=== PATIENT | female | born 1950 | race Caucasian/White ===

== ENCOUNTER 2023-01-28 09:13 | Outpatient (OUT) | payer MEDICARE, SELFPAY ==
[2023-01-28 10:31] LABS: Alanine Aminotransferase 22 U/L (14-59); Albumin Globulin Ratio 0.9; Albumin Level 3.3 g/dL (3.4-5.0); Alkaline Phosphatase 97 U/L (46-116); Anion Gap 11.5; Aspartate Amino Transferase 16 U/L (15-37); BUN Creatinine Ratio 19.7; Bilirubin Total 0.3 mg/dL (0.2-1.0); Calcium 8.6 mg/dL (8.5-10.1); Carbon Dioxide 28.5 mmol/L (21.0-32.0); Chloride 105 mmol/L (98-107); Chol HDL Ratio 2.4; Cholesterol 181 mg/dL (<=200); Estimated GFR (African America >60 (>=60); Estimated GFR (Non-African Ame >60 (>=60); Globulin 3.7 g/dL; Glucose 99 mg/dL (74-106); HDL Cholesterol 75 mg/dL (40-60); Sodium 141 mmol/L (136-145); Triglycerides 134 mg/dL (<=150); VLDL CHOLESTEROL 26.8 mg/dL
== END 2023-01-28 09:14 | disposition home or self-care (01) ==
LOC: LAB 09:13
PROVIDERS: PCP Family Medicine; Visit Provider Family Medicine
DX: E78.5 Hyperlipidemia, unspecified (principal)
CPT/HCPCS: 36415; 80053; 80061

== ENCOUNTER 2023-02-04 13:23 | Outpatient (OUT) | payer MEDICARE, SELFPAY ==
--- NOTE | 2023-02-04 | MM_ITS ---
Patient: PIERCE STRAUSS Exam Date: 02/04/2023 : 1950 Gender:F Ordering : DR Joann Green M.D. Admission #: [id number] Family : Order #: [id number] CLICK HERE TO VIEW EXAM RADIOLOGY REPORT PROCEDURE: MM TOMOSYNTHESIS SCREENING BI COMPARISON: MG MAMM SCREEN 3D KEVIN CAD, 02/03/2022. MG MAMM SCREEN 3D KEVIN CAD, 01/31/2021. MG MAMM SCREEN KEVIN W CAD, 01/31/2020. MG MAMM SCREEN KEVIN W CAD, 01/15/2013. INDICATIONS: Screening for malignant neoplasm Calculator Name NCI Breast Cancer Risk Assessment Tool 5 Year Breast Cancer Risk 2.30% Lifetime Breast Cancer Risk 6.00% Personal Breast Cancer No Personal Ovarian Cancer No Treatments None Family Cancers None LOCATION: [facility] BREAST COMPOSITION: Heterogeneously dense,which may obscure small masses. FINDINGS: DIAGNOSTIC CATEGORY 1--NEGATIVE. RIGHT BREAST: No significant suspicious finding. No significant change has occurred. LEFT BREAST: No significant suspicious finding. No significant change has occurred. RECOMMENDATIONS: ROUTINE MAMMOGRAM AND CLINICAL EVALUATION IN 12 MONTHS. PLEASE NOTE: A NORMAL MAMMOGRAM DOES NOT EXCLUDE THE POSSIBILITY OF BREAST CANCER. A CLINICALLY SUSPICIOUS PALPABLE LUMP SHOULD BE BIOPSIED. Dictated by: Kobe Glez M.D. on 02/09/2023 at 12:54 Approved by: Kobe Glez M.D. on 02/09/2023 at 12:56
== END 2023-02-04 13:24 | disposition home or self-care (01) ==
LOC: MAMMO 13:23
PROVIDERS: PCP Family Medicine; Visit Provider Family Medicine
DX: Z12.31 Encounter for screening mammogram for malignant neoplasm of breast (principal)
CPT/HCPCS: 77063; 77067

== ENCOUNTER 2024-02-04 09:42 | Outpatient (OUT) | payer MEDICARE, SELFPAY ==
--- OUTSIDE RECORDS SUMMARY | 2024-02-04 09:56 | XMS_ITS | CCD ---
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 Name Role Phone DR JOANN GREEN Primary Care Unavailable WEST, DR RICKIE Sweeney Consulting Unavailable JOSHUA, DR JOANN Deluca Admitting Unavailable JOSHUA, DR JOANN Deluca Attending Unavailable JOSHUA, DR JOANN Deluca Consulting Unavailable JOSHUA, DR JOANN Deluca Primary Care Unavailable GREEN, DR JOANN Deluca Admitting Unavailable GREEN, DR JOANN Deluca Attending Unavailable JOSHUA, DR JOANN Deluca Consulting Unavailable DANYA Zeng Attending Provider [phone] Fabby Zeng Unavailable Joann Green Primary Care Unavailable Fabby Zeng Attending Unavailable Fabby Zeng Admitting Unavailable Joann Green Unavailable Allergies Allergy Classification Reported Allergen(s) Allergy Type Date of Onset Reaction(s) Facility (1 source) Iodine (And Iodine Containting Drugs) Drug allergy (disorder) [facility] Repository (1 source) Penicillin Drug Allergy [facility] Repository (3 sources) Penicillin V Drug Allergy rash [employer] [facility] Other (3 sources) [employer] *MEDICAL DEVICES AND SUPP Propensity to adverse reactions Comment:CT DYE [facility] Other (3 sources) Penicillin G Benzathine & Proc Drug allergy Unknown [facility] Other Medications Completed/Discontinued Medications Medication Drug Class(es) Dates Sig (Normalized) Sig (Original) Aircast Sport Ankle Brace/Left - (3 sources) Start: 12-24-2019 Aircast Sport Ankle Brace/Left - as directed Dec, Not-Taking atorvastatin 20 mg oral tablet (6 sources) HMG-CoA Reductase Inhibitor Start: 01-16-2022 take 1 tablet by mouth once daily atorvastatin 20mg atorvastatin 20mg, 1 (one) Tablet daily # 0, 01/16/2022, No Refill. Active oral daily for 0 *Reorder from [employer] for eRx and Interaction Alerts* Jan, Not-Taking naproxen sodium 550 mg oral tablet (3 sources) Nonsteroidal Anti-inflammatory Drug Start: 12-24-2019 take 1 tablet by mouth every twelve hours Anaprox DS 550 MG 1 tablet Orally Twice a day for 10 days Dec, Not-Taking omeprazole 20 mg oral tablet (6 sources) Proton Pump Inhibitor Start: 02-27-2022 take 1 capsule by mouth once daily Omeprazole 20mg omeprazole 20mg, 1 (one) Capsule daily # 0, 02/27/2022, No Refill. Active oral daily for 0 *Pick strength-form from [employer] for eRX* Feb, Not-Taking take 1 capsule by [facility] every twenty-four hours Omeprazole 20 MG 1 capsule Orally Once a day for 90 days Active Problems Active Problems Problem Classification Problem Date Documented Da te Episodic/Chronic Abdominal pain (5 sources) Right upper quadrant pain; Translations: [Right upper quadrant pain] Onset: 05-31-2018 Episodic Disorders of lipid metabolism (7 sources) Hyperlipidemia, unspecified; Translations: [Hyperlipidemia] Onset: 11-26-2016 Chronic Esophageal disorders (6 sources) Esophageal reflux finding; Translations: [Esophageal reflux] Onset: 12-01-2018 Chronic Genitourinary symptoms and ill-defined conditions (1 source) Dysuria; Translations: [Dysuria] Onset: 11-23-2022 Episodic Other injuries and conditions due to external causes (2 sources) History of fall; Translations: [History of falling] Episodic Other nutritional; endocrine; and metabolic disorders (2 sources) Body mass index 25-29 - overweight; Translations: [Body mass index (BMI) 26.0-26.9, adult] Episodic Other nutritional; endocrine; and metabolic disorders (2 sources) Overweight; Translations: [Overweight] Episodic Other screening for suspected conditions (not mental disorders or infectious disease) (5 sources) Encounter for screening mammogram for malignant neoplasm of breast; Translations: [ENC SCR MAMMO MALIG NEOPLASM BREAST] Onset: 02-03-2022 Episodic Other upper respiratory disease (2 sources) Seasonal allergic rhinitis; Translations: [Other seasonal allergic rhinitis] Onset: 12-22-2017 Chronic Past or Other Problems Problem Classification Problem Date Documented Da te Episodic/Chronic Acute bronchitis (2 sources) Acute bronchitis; Translations: [Acute bronchitis, unspecified] Onset: 12-22-2017 Episodic Immunizations and screening for infectious disease (2 sources) Vaccination given; Translations: [Encounter for immunization] Onset: 12-02-2016 Episodic Other disorders of stomach and duodenum (2 sources) Nonulcer dyspepsia; 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] Onset: 05-31-2018 Episodic Residual codes; unclassified (2 sources) Requires influenza virus vaccination; Translations: [Need for prophylactic vaccination and inoculation, Influenza] Onset: 12-02-2016 Episodic Results Test Name Value Interpretation Reference Range Facil ity Urine Cultureon 11-23-2022 Bacteria identified Cx Nom (U) Reason for Exam Dysuria Urine <9,000 colonies/ml mixed bacterial skin contaminants 2 Days PERFORMED BY: [place] [address] PATHOLOGIST PATIENT NAVIGATOR NINOSKA CUI M.D. [facility] Comment on above: Performed By: #### C UU #### [address] MG MAMM SCREEN 3D KEVIN CADon 02-03-2022 MG MAMM SCREEN 3D KEVIN CAD Patient: PIERCE STRAUSS Exam Date: 02/03/2022 : 1950 Gender:F Ordering : DR JOANN GREEN M.D. Admission #: [id number] Family : Order #: [id number] CLICK HERE TO VIEW EXAM RADIOLOGY REPORT PROCEDURE: MAMMOGRAM SCREENING 3D BILATERAL CAD COMPARISON: MG MAMM SCREEN KEVIN W CAD, 01/31/2020. MG MAMM SCREEN 3D KEVIN CAD, 01/31/2021. INDICATIONS: Screening mammography Calculator Name NCI Breast Cancer Risk Assessment Tool 5 Year Breast Cancer Risk 2.30% Lifetime Breast Cancer Risk 6.30% Personal Breast Cancer No Personal Ovarian Cancer No Treatments None Family Cancers None LOCATION: [facility] BREAST COMPOSITION: Heterogeneously dense,which may obscure small masses. FINDINGS: DIAGNOSTIC CATEGORY 1--NEGATIVE. NO CHANGE FROM COMPARISON ASSESSMENT. Scattered benign-appearing calcifications are present. Scattered benign-appearing lymph nodes are present. RIGHT BREAST: No significant suspicious finding. LEFT BREAST: No significant suspicious finding. RECOMMENDATIONS: ROUTINE MAMMOGRAM AND CLINICAL EVALUATION IN 12 MONTHS. PLEASE NOTE: A NORMAL MAMMOGRAM DOES NOT EXCLUDE THE POSSIBILITY OF BREAST CANCER. A CLINICALLY SUSPICIOUS PALPABLE LUMP SHOULD BE BIOPSIED. Dictated by: Rickie Escobar MD on 02/03/2022 at 14:26 Approved by: Rickie Escobar MD on 02/03/2022 at 14:28 Normal [facility] CBC AUTO DIFFon 01-14-2022 BASO # 0.0 103/ul Normal 0.0-0.1 [facility] Comment on above: Performed By: #### C BC #### [facility] [address] [place] [address] Dr. Giovanni Stewart Basophils/100 WBC (Bld) 0.8 % Normal 0.2-2.0 [facility] Comment on above: Performed By: #### C BC #### [facility] [address] [place] [address] Dr. Giovanni Stewart EO # 0.1 103/ul Normal 0.0-0.7 [facility] Comment on above: Performed By: #### C BC #### [facility] [address] [place] [address] Dr. Giovanni Stewart Eosinophils/100 WBC (Bld) 1.9 % Normal 0.9-7.0 [facility] Comment on above: Performed By: #### C BC #### [facility] [address] [place] [address] Dr. Giovanni Stewart Erythrocyte distribution width (RBC) [Ratio] 14.0 % Normal 11.0-15.0 [facility] Comment on above: Performed By: #### C BC #### [facility] [address] [place] [address] Dr. Giovanni Stewart Hematocrit (Bld) [Volume fraction] 38.7 % Normal 36.0-48.0 [facility] Comment on above: Performed By: #### C BC #### [facility] [address] [place] [address] Dr. Giovanni Stewart Hemoglobin (Bld) [Mass/Vol] 12.4 g/dL Normal 12.0-16.0 [facility] Comment on above: Performed By: #### C BC #### [facility] [address] [place] [address] Dr. Giovanni Stewart IG # 0.01 10e3/ul Normal 0.00-0.03 [facility] Comment on above: Performed By: #### C BC #### [facility] [address] [place] [address] Dr. Giovanni Stewart IG % 0.2 % Normal 0.0-0.5 [facility] Comment on above: Performed By: #### C BC #### [facility] [address] [place] [address] Dr. Giovanni Stewart LYMPH # 2.0 103/ul Normal 1.2-3.8 [facility] Comment on above: Performed By: #### C BC #### [facility] [address] [place] [address] Dr. Giovanni Stewart Lymphocytes/100 WBC (Bld) 39.4 % Normal 20.5-60.0 [facility] Comment on above: Performed By: #### C BC #### [facility] [address] [place] [address] Dr. Giovanni Stewart MANUAL DIFF REQ NO Normal [facility] Comment on above: Performed By: #### C BC #### [facility] [address] [place] [address] Dr. Giovanni Stewart MCH (RBC) [Entitic mass] 28.3 pg Normal 26.7-34.0 [facility] Comment on above: Performed By: #### C BC #### [facility] [address] [place] [address] Dr. Giovanni Stewart MCHC (RBC) [Mass/Vol] 32.0 g/dL Normal 29.9-35.2 [facility] Comment on above: Performed By: #### C BC #### [facility] [address] [place] [address] Dr. Giovanni Stewart MCV (RBC) [Entitic vol] 88.4 fL Normal 81.0-99.0 [facility] Comment on above: Performed By: #### C BC #### [facility] [address] [place] [address] Dr. Giovanni Stewart MONO # 0.4 103/ul Normal 0.3-0.8 [facility] Comment on above: Performed By: #### C BC #### [facility] [address] [place] [address] Dr. Giovanni Stewart Monocytes/100 WBC (Bld) 7.6 % Normal 1.7-12.0 [facility] Comment on above: Performed By: #### C BC #### [facility] [address] [place] [address] Dr. Giovanni Stewart NEUT # 2.6 103/ul Normal 1.4-6.5 [facility] Comment on above: Performed By: #### C BC #### [facility] [address] [place] [address] Dr. Giovanni Stewart Neutrophils/100 WBC (Bld) 50.1 % Normal 43.0-75.0 [facility] Comment on above: Performed By: #### C BC #### [facility] [address] [place] [address] Dr. Giovanni Stewart Platelet mean volume (Bld) [Entitic vol] 10.4 fL Normal 9.5-13.5 [facility] Comment on above: Performed By: #### C BC #### [facility] [address] [place] [address] Dr. Giovanni Stewart PLT 282 103/ul Normal 150-450 [facility] Comment on above: Performed By: #### C BC #### [facility] [address] [place] [address] Dr. Giovanni Stewart RBC 4.38 106/ul Normal 4.20-5.40 [facility] Comment on above: Performed By: #### C BC #### [facility] [address] [place] [address] Dr. Giovanni Stewart WBC 5.1 103/ul Normal 4.0-11.0 [facility] Comment on above: Performed By: #### C BC #### [facility] [address] [place] [address] Dr. Giovanni Stewart LIPID PROFILEon 01-14-2022 CHOL-HDL RATIO NORM SEE BELOW Normal [facility] Comment on above: Result Comment: 3.3 - 4.4 LOW RISK 4.4 - 7.1 AVERAGE RISK 7.1 - 11.0 MODERATE RISK >11.0 HIGH RISK Performed By: #### L IPID, CMP #### [facility] [address] [address] [address] Giovanni Stewart Cholesterol [Mass/Vol] 168 mg/dL Normal <=200 [facility] Comment on above: Performed By: #### L IPID, CMP #### [facility] [address] [address] [address] Giovanni Stewart Cholesterol in HDL [Mass/Vol] 69 mg/dL Critically high 40-60 [facility] Comment on above: Performed By: #### L IPID, CMP #### [facility] [address] [address] [address] Giovanni Stewart Cholesterol in LDL [Mass/Vol] 73.2 mg/dL Normal [facility] Comment on above: Performed By: #### L IPID, CMP #### [facility] [address] [address] [address] Giovanni Stewart Cholesterol.total/ Cholesterol in HDL [Mass ratio] 2.4 {ratio} Normal [facility] Comment on above: Performed By: #### L IPID, CMP #### [facility] [address] [address] [address] Giovanni Stewart HDL NORMAL > or = 60 mg/dl - LO W CARDIOVASCULAR RISK <40 mg/dl - HIGH CARDIOVASCULAR RISK Normal [facility] Comment on above: Performed By: #### L IPID, CMP #### [facility] [address] [address] [address] Giovanni Stewart LDL CALC NORMAL SEE BELOW Normal [facility] Comment on above: Result Comment: <100 mg/dl OPTIMAL 100 - 129 mg/dl NEAR OR ABOVE OPTIMAL 130 - 159 mg/dl BORDERLINE HIGH 160 - 189 mg/dl HIGH >190 mg/dl VERY HIGH Performed By: #### L IPID, CMP #### [facility] [address] [address] [address] Giovanni Stewart Triglyceride [Mass/Vol] 129 mg/dL Normal <=150 [facility] Comment on above: Performed By: #### L IPID, CMP #### [facility] [address] [place] [address] Dr. Giovanni Stewart VLDL CALC 25.8 mg/dL Normal [facility] Comment on above: Performed By: #### L IPID, CMP #### [facility] [address] [place] [address] Dr. Giovanni Stewart PROF 14(COMP METB)on 022 Albumin [Mass/Vol] 3.6 g/dL Normal 3.4-5.0 [facility] Comment on above: Performed By: #### L IPID, CMP #### [facility] [address] [place] [address] Dr. Giovanni Stewart Albumin/Globulin [Mass ratio] 1.0 {ratio} Normal [facility] Comment on above: Performed By: #### L IPID, CMP #### [facility] [address] [place] [address] Dr. Giovanni Stewart ALP [Catalytic activity/Vol] 88 U/L Normal 46-116 [facility] Comment on above: Performed By: #### L IPID, CMP #### [facility] [address] [place] [address] Dr. Giovanni Stewart ALT [Catalytic activity/Vol] 20 U/L Normal 14-59 [facility] Comment on above: Performed By: #### L IPID, CMP #### [facility] [address] [place] [address] Dr. Giovanni Stewart Anion gap [Moles/Vol] 12.9 mmol/L Normal [facility] Comment on above: Performed By: #### L IPID, CMP #### [facility] [address] [place] [address] Dr. Giovanni Stewart AST [Catalytic activity/Vol] 20 U/L Normal 15-37 [facility] Comment on above: Performed By: #### L IPID, CMP #### [facility] [address] [place] [address] Dr. Giovanni Stewart Bilirubin [Mass/Vol] 0.4 mg/dL Normal 0.2-1.0 [facility] Comment on above: Performed By: #### L IPID, CMP #### [facility] [address] [place] [address] Dr. Giovanni Stewart Calcium [Mass/Vol] 9.3 mg/dL Normal 8.5-10.1 [facility] Comment on above: Performed By: #### L IPID, CMP #### [facility] [address] [place] [address] Dr. Giovanni Stewart Chloride [Moles/Vol] 104 mmol/L Normal 98-107 [facility] Comment on above: Performed By: #### L IPID, CMP #### [facility] [address] [place] [address] Dr. Giovanni Stewart CO2 [Moles/Vol] 27.4 mmol/L Normal 21.0-32.0 [facility] Comment on above: Performed By: #### L IPID, CMP #### [facility] [address] [place] [address] Dr. Giovanni Stewart Creatinine [Mass/Vol] 0.79 mg/dL Normal 0.55-1.02 [facility] Comment on above: Performed By: #### L IPID, CMP #### [facility] [address] [place] [address] Dr. Giovanni Stewart EGFR-AF NIGERIEN >60 Normal >=60 [facility] Comment on above: Performed By: #### L IPID, CMP #### [facility] [address] [place] [address] Dr. Giovanni Stewart EGFR-NON AF NIGERIEN >60 Normal >=60 [facility] Comment on above: Performed By: #### L IPID, CMP #### [facility] [address] [place] [address] Dr. Giovanni Stewart Globulin (S) [Mass/Vol] 3.5 g/dL Normal [facility] Comment on above: Performed By: #### L IPID, CMP #### [facility] [address] [place], [place] [id number] Dr. Giovanni Stewart Glucose [Mass/Vol] 107 mg/dL Critically high 74-106 [facility] Comment on above: Performed By: #### L IPID, CMP #### [facility] [address] [place] [address] Dr. Giovanni Stewart Potassium [Moles/Vol] 4.3 mmol/L Normal 3.5-5.1 [facility] Comment on above: Performed By: #### L IPID, CMP #### [facility] [address] [place] [address] Dr. Giovanni Stewart Protein [Mass/Vol] 7.1 g/dL Normal 6.4-8.2 [facility] Comment on above: Performed By: #### L IPID, CMP #### [facility] [address] [place] [address] Dr. Giovanni Stewart Sodium [Moles/Vol] 140 mmol/L Normal 136-145 [facility] Comment on above: Performed By: #### L IPID, CMP #### [facility] [address] [place] [address] Dr. Giovanni Stewart Urea nitrogen [Mass/Vol] 14.0 mg/dL Normal 7.0-18.0 [facility] Comment on above: Performed By: #### L IPID, CMP #### [facility] [address] [place] [address] Dr. Giovanni Stewart Urea nitrogen/Creatinin e [Mass ratio] 17.7 mg/mg Normal [facility] Comment on above: Performed By: #### L IPID, CMP #### [facility] [address] [place] [address] Dr. Giovanni Stewart Vital Signs Date Time Vital Sign Value Performing Clinician Facility 02-02-2023 13:00-0400 Body height 151.13 cm Joann Green Other [facility] Other 02-02-2023 13:00-0400 Body mass index (BMI) [Ratio] 25.62 kg/m2 Joann Green Other [facility] Other 02-02-2023 13:00-0400 Body weight 58.51 kg Joann Green Other [facility] Other 02-02-2023 13:00-0400 Diastolic blood pressure 82 mm[Hg] Joann Green Other [facility] Other 02-02-2023 13:00-0400 Systolic blood pressure 142 mm[Hg] Joann Green Other [facility] Other Encounters Encounter Date Encounter Type Care Provider Facility Start: 02-02-2023 End: 02-02-2023 ambulatory Joann Green Other [facility] Other Start: 02-02-2023 Patient encounter procedure Joann Green [facility] Start: 01-26-2023 End: 01-26-2023 ambulatory Joann Green Other [facility] Other Start: 01-26-2023 Telephone encounter Joann Green [facility] Start: 11-27-2022 End: 11-27-2022 ambulatory Fabby Zeng Other [facility] Other Start: 11-27-2022 Telephone encounter Fabby Zeng [facility] Start: 11-23-2022 End: 11-23-2022 ambulatory Joann Green Facility:[facility] Start: 11-23-2022 End: 11-23-2022 ambulatory DNAYA Zeng Work Phone: [facility] Work Phone: Start: 11-23-2022 End: 11-23-2022 Departed Referred DANYA Zeng Work Phone: [facility] Work Phone: Start: 02-03-2022 End: 02-04-[address] JOANN GREEN Facility:[facility] Start: 01-17-2022 Encounter for genera l adult medical examination without abnormal findings DR JOANN GREEN [facility] Start: 01-16-2022 Adult health examination Fabby Zeng Other [facility] Other Start: 01-14-2022 End: 01-15-[address] JOANN GREEN Facility:[facility] Start: 01-14-2022 End: 01-15-2022 Encounter for general adult medical examination without abnormal findings DR JOANN GREEN Facility:[facility] Procedures Date Procedure Procedure Detail Performing Clinician Start: 12-01-2017 Screening for malign ant neoplasm of colon Fabby Zeng Other Start: 12-02-2016 Screening mammography Tushar Zeng Other Start: 11-26-2016 General examination of patient Fabby Zeng Other Depression screening Fabby Zeng Other Plan of Treatment Date Care Activity Detail Author Start: 11-23-2022 Bacteria identified in Urine by Culture [facility] Immunizations Immunization Date Immunization Notes Care Provider Delmy wise 02-03-2022 COVID-19 Pfizer (Pediatric) Fabby Zeng Other [facility] Other 01-11-2022 influenza virus vaccine, split virus (incl. purified surface antigen) Fabby Zeng Other [facility] Other 10-29-2021 COVID-19 Vaccine Pfi zer - Documentation Purposes Only Fabby Zeng Other [facility] Other 01-31-2021 COVID-19 Vaccine Pfi zer - Documentation Purposes Only Fabby Zeng Other [facility] Other 01-10-2021 influenza virus vaccine, split virus (incl. purified surface antigen) Fabby Zneg Other [facility] Other 12-16-2019 influenza virus vaccine, split virus (incl. purified surface antigen) Fabby Azucena Other [facility] Other 04-29-2019 zoster vaccine, live Fabby Azucena Other [facility] Other 12-02-2016 influenza virus vaccine, split virus (incl. purified surface antigen) Fabby Azucena Other [facility] Other 12-02-2016 pneumococcal polysaccharide vaccine, 23 valent Fabbymagalys Zeng Other [facility] Other 12-28-2015 pneumococcal conjuga te vaccine, 13 valent Fabbymagalys Zeng Other [facility] Other Payers Date Payer Category Payer Self-pay [id number] 1959 Medicare [id number] 1959 Unknown [id number] 1950 Unknown [id number] 1950 Unknown [id number] Unknown [id number] Social History Date Type Detail Facility Tobacco smoking status NMIS Unknown if ever smoked [facility] Work Phone: Start: 1950 Sex Assigned At Female F [facility] Sex Assigned At Sex Assigned At Bir th [facility] Other Evaluation note 02-02-2023 Note Date & Type Note Facility 02-02-2023 Evaluation note Encounter Date Diagnosis Assessment Notes Jan, Medicare annual wellness visit, subsequent (ICD-10 - Z00.00) Personalized health advice was given to the beneficiary including a written plan for screenings discussed and provided. Advanced care planning reviewed and/or information given as requested. Additional counseling was provided here today in regards to, [ ]. The above visit was performed by [ ], under direct supervision of [ ]. Document reviewed and amended by provider signed below. Jan, GERD without esophagitis (ICD-10 - K21.9) Omeprazole refilled. Chronic problem. Jan, Dyslipidemia (ICD-10 - E78.5) Med refilled. chronic problem. reviewed labs. Jan, Screening mammogram for breast cancer (ICD-10 - Z12.31) [facility] Other Evaluation note 01-26-2023 Note Date & Type Note Facility 01-26-2023 Evaluation note Encounter Date Diagnosis Assessment Notes Jan, Dyslipidemia (ICD-10 - E78.5) [facility] Other Evaluation note Note Date & Type Note Facility [facility] Evaluation note Note Date & Type Note Facility Evaluation note No Information [facility] Other History general Narrative - Reported Note Date & Type Note Facility History general Narrative - Reported Type Medical History GERD (gastroesophageal reflux di sease) Medical History Hypercholesteremia Surgical History salpingo-oophorectomy, left [facility] Other History general Narrative - Reported Note Date & Type Note Facility History general Narrative - Reported Type Medical History GERD (gastroesophageal reflux di sease) Medical History Hypercholesteremia Surgical History salpingo-oophorectomy, left Hospitalization History SEE SURGICAL HX [place] Other Summary Purpose Family History No Family History Records FoundNo Family History Records Found Advance Directives Advance Directive Response Recorded Date/ Time Advance Directives No December 7:34pm Chief Complaint and Reason for Visit Chief Complaint Dysuria Additional Source Comments INFORMATION SOURCE (unrecogn ized section and content) DATE CREATED AUTHOR 02/09/2022 [facility] DATE CREATED AUTHOR AUTHOR'S ORGANCONCHITA ATION 11/29/2022 [facility] Care Teams (unrecognized sec tion and content) Team Status: Inactive Member Role Status Dates Fabby Zeng APRN Attending Provider Active Goals (unrecognized section and content) Goals may be documented in a n alternate sectionNo InformationNo InformationNo Information REASON FOR VISIT (unrecogniz ed section and content) wellness labs FOR RECORDS PERTAINING TO PATIENTS WHO ARE OR HAVE BEEN ENROLLED IN A CHEMICAL DEPENDENCY/SUBSTANCEABUSE PROGRAM, SOME INFORMATION MAY BE OMITTED. This clinical summary was aggregated from multiple sources. Caution should be exercised in using it in the provision of clinical care. This summary normalizes information from multiple sources, and as a consequence, information in this document may materially change the coding, format and clinical context of patient data. In addition, data may be omitted in some cases. CLINICAL DECISIONS SHOULD BE BASED ON THE PRIMARY CLINICAL RECORDS. [employer] [facility]. provides no warranty or guarantee of the accuracy or completeness of information in this document.
[2024-02-04 10:25] LABS: Basophils Absolute Auto 0.1 10^3/uL (0.0-0.1); Basophils Percent Auto 0.9 % (0.2-2.0); Eosinophils Absolute Auto 0.1 10^3/uL (0.0-0.7); Hematocrit 36.8 % (36.0-48.0); Hemoglobin 12.1 g/dL (12.0-16.0); Immature Granulocytes Abs Auto 0.01 10^3/uL (0.00-0.03); Immature Granulocytes Pct Auto 0.2 % (0.0-0.5); Lymphocytes Absolute Auto 1.9 10^3/uL (1.2-3.8); Lymphocytes Percent Auto 34.8 % (20.5-60.0); Mean Corpuscular HGB Conc 32.9 g/dL (29.9-35.2); Mean Corpuscular Hemoglobin 28.6 pg (26.7-34.0); Mean Platelet Volume 10.4 fL (9.5-13.5); Monocytes Absolute Auto 0.5 10^3/uL (0.3-0.8); Monocytes Percent Auto 8.6 % (1.7-12.0); Neutrophils Percent Auto 53.5 % (43.0-75.0); Platelet Count 306 10^3/uL (150-450); Red Blood Count 4.23 10^6/uL (4.20-5.40); White Blood Count 5.6 10^3/uL (4.0-11.0)
[2024-02-04 11:07] LABS: Alanine Aminotransferase 17 U/L (14-59); Albumin Globulin Ratio 0.9; Albumin Level 3.2 g/dL (3.4-5.0); Alkaline Phosphatase 98 U/L (46-116); Anion Gap 14.6; Aspartate Amino Transferase 18 U/L (15-37); Bilirubin Total 0.5 mg/dL (0.2-1.0); Calcium 9.3 mg/dL (8.5-10.1); Carbon Dioxide 26.5 mmol/L (21.0-32.0); Chloride 105 mmol/L (98-107); Chol HDL Ratio 2.4; Cholesterol 153 mg/dL (<=200); Estimated GFR (African America >60 (>=60 mL/min/1.73m^2); Estimated GFR (Non-African Ame >60 (>=60 mL/min/1.73m^2); Globulin 3.7 g/dL; Glucose 103 mg/dL (74-106); HDL Cholesterol 65 mg/dL (40-60); Potassium 4.1 mmol/L (3.5-5.1); Sodium 142 mmol/L (136-145); Total Protein 6.9 g/dL (6.4-8.2); Triglycerides 153 mg/dL (<=150); VLDL CHOLESTEROL 30.6 mg/dL
== END 2024-02-04 09:43 | disposition home or self-care (01) ==
LOC: LAB 09:47
PROVIDERS: PCP Family Medicine; Visit Provider Family Medicine
DX: E78.00 Pure hypercholesterolemia, unspecified (principal); K21.9 Gastro-esophageal reflux disease without esophagitis
CPT/HCPCS: 36415; 80053; 80061; 85025

== ENCOUNTER 2024-02-08 12:50 | Outpatient (OUT) | payer MEDICARE, SELFPAY ==
--- NOTE | 2024-02-08 12:51 | MM_ITS ---
Patient Name: PIERCE STRAUSS MR#: [id number] : 1950 Exam Date: 02/08/2024 Ordering Doctor: DR Joann Green M.D. RADIOLOGY REPORT PROCEDURE: MM TOMOSYNTHESIS SCREENING BI COMPARISON: MG MAMM SCREEN 3D KEVIN CAD, 02/03/2022. MM TOMOSYNTHESIS SCREENING BI, 02/04/2023. INDICATIONS: Screening Calculator Name NCI Breast Cancer Risk Assessment Tool 5 Year Breast Cancer Risk 2.30% Lifetime Breast Cancer Risk 5.70% Personal Breast Cancer No Personal Ovarian Cancer No Treatments None Family Cancers None LOCATION: [facility] BREAST COMPOSITION: The breasts are heterogeneously dense,which may obscure small masses. FINDINGS: DIAGNOSTIC CATEGORY 1--NEGATIVE. NO CHANGE FROM COMPARISON ASSESSMENT. Scattered benign-appearing lymph nodes are present. RIGHT BREAST: No significant suspicious finding. LEFT BREAST: No significant suspicious finding. RECOMMENDATIONS: ROUTINE MAMMOGRAM AND CLINICAL EVALUATION IN 12 MONTHS. PLEASE NOTE: A NORMAL MAMMOGRAM DOES NOT EXCLUDE THE POSSIBILITY OF BREAST CANCER. A CLINICALLY SUSPICIOUS PALPABLE LUMP SHOULD BE BIOPSIED. Dictated by: George Escobar MD on 02/08/2024 at 14:01 Approved by: George Escobar MD on 02/08/2024 at 14:02
--- OUTSIDE RECORDS SUMMARY | 2024-02-08 12:58 | XMS_ITS | CCD ---
Author Organization [facility] Care Team Providers Care Weaving Inspector Name Role Phone DR JOANN GREEN Primary Care Unavailable WEST, DR RICKIE Sweeney Consulting Unavailable JOSHUA, DR JOANN Deluca Admitting Unavailable JOSHUA, DR JOANN Deluca Attending Unavailable JOSHUA, DR JOANN Deluca Consulting Unavailable JOSHUA, DR JOANN Deluca Primary Care Unavailable JOSHUA, DR JOANN Deluca Admitting Unavailable JOSHUA, DR JOANN Deluca Attending Unavailable JOSHUA, DR JOANN Deluca Consulting Unavailable DANYA Zeng Attending Provider Fabby Zeng Unavailable Joann Green Primary Care Unavailable Fabby Zeng Attending Unavailable Fabby Zeng Admitting Unavailable Joann Green Unavailable Allergies Allergy Classification Reported Allergen(s) Allergy Type Date of Onset Reaction(s) Facility (1 source) Iodine (And Iodine Containting Drugs) Drug allergy (disorder) [facility] (1 source) Penicillin Drug Allergy [facility] (4 sources) Penicillin V Drug Allergy 4 [facility] (3 sources) [employer] *MEDICAL DEVICES AND SUPP Propensity to adverse reactions Comment:CT [facility] [place] [employer] Other (3 sources) Penicillin G Benzathine & Proc Drug allergy Unknown [facility] Other (1 source) Penicillin G Benzathine Allergy to substance 4 [facility] (1 source) [employer] *MEDI Allergy to substance 3 Comment:[facility] Medications Current Medications Medication Drug Class(es) Dates Sig (Normalized) Sig (Original) atorvastatin 10 mg oral tablet (9 sources) HMG-CoA Reductase Inhibitor Start: 02-05-2024 take 10 mg by mouth once daily Atorvastatin Active 10 MG PO Daily February 05, 2024 11:31am Start: 07-01-2023 End: 02-05-2024 take 1 tablet by mouth once daily Atorvastatin Discontinued 20 MG PO Daily July 02, 2023 9:15am February 05, 2024 11:32am [employer] tablet Orally Once a day; Note: Source Status: Refill; Refills: 0; Provider: Joshua Deluca Start: 01-16-2022 take 1 tablet by tanya th once daily atorvastatin 20mg atorvastatin 20mg, 1 (one) Tablet daily # 0, 01/16/2022, No Refill. Active oral daily for 0 *Reorder from [employer] for eRx and Interaction Alerts* Jan, Not-Taking Completed/Discontinued Medications Medication Drug Class(es) Dates Sig (Normalized) Sig (Original) [employer] Sport Ankle Brace/Left - (3 sources) Start: 12-24-2019 [employer] Sport Ankle Brace/Left - as directed Dec, Not-Taking naproxen sodium 550 mg oral tablet (4 sources) Nonsteroidal Anti-inflammatory Drug Start: 07-01-2023 End: 02-05-2024 take 1 tablet by mouth twice daily Naproxen Sodium Discontinued 1 TAB PO Twice daily July 01, 2023 12:00am February 05, 2024 11:30am [employer] tablet Orally Twice a day; Note: Source Status: Not-Taking\PRN; Qty: 20 Tablet; Provider: Jono Hernandez Start: 12-24-2019 take 1 tablet by tanya th every twelve hours Anaprox DS 550 MG 1 tablet Orally Twice a day for 10 days Dec, Not-Taking omeprazole 20 mg delayed release oral capsule (8 sources) Proton Pump Inhibitor Start: 07-01-2023 End: 02-05-2024 take 1 capsule by mouth once daily Omeprazole Discontinued 20 MG PO Daily July 02, 2023 9:15am February 05, 2024 11:14am [employer] capsule Orally Once a day; Note: Source Status: Refill; Refills: 0; Provider: Joshua Deluca Start: 02-27-2022 take 1 capsule by mo [facility] once daily Omeprazole 20mg omeprazole 20mg, 1 (one) Capsule daily # 0, 02/27/2022, No Refill. Active oral daily for 0 *Pick strength-form from [employer] for eRX* 17 Feb, 2022 Not-Taking take 1 capsule by mo [facility] every twenty-four hours Omeprazole 20 MG 1 capsule Orally Once a day for 90 days Active Problems Active Problems Problem Classification Problem Date Documented Da te Episodic/Chronic Abdominal pain (5 sources) Right upper quadrant pain; Translations: [Right upper quadrant pain] Onset: 05-31-2018 Episodic Disorders of lipid metabolism (8 sources) Hyperlipidemia, unspecified; Translations: [Hyperlipidemia] Onset: 11-26-2016 Chronic Esophageal disorders (7 sources) Esophageal reflux finding; Translations: [Esophageal reflux] [...] Results Test Name Value Interpretation Reference Range Facility Basophils Auto (Bld) [#/Vol] on 02-04-2024 Basophils (Bld) [#/Vol] 0.1 10 3/uL 0.0-0.1 [facility] Basophils/100 WBC Auto (Bld) on 02-04-2024 Basophils/100 WBC (Bld) 0.9 % 0.2-2.0 [facility] Cholesterol in LDL Calc [Mas s/Vol]on 02-04-2024 Cholesterol in LDL [Mass/Vol] 58.0 mg/dL [facility] Comment on above: <100 mg/dl [id number] 0-129 mg/dl NEAR OR ABOVE [id number] mg/dl BORDERLINE [id number] mg/dl HIGH>190 mg/dl VERY HIGH Cholesterol in VLDL Calc [Ma ss/Vol]on 02-04-2024 Cholesterol in VLDL [Mass/Vol] 30.6 mg/dL [facility] Eosinophils/100 WBC Auto (Bl d)on 02-04-2024 Eosinophils/100 WBC (Bld) 2.0 % 0.9-7.0 [facility] Erythrocyte distribution wid th Auto (RBC) [Ratio]on 02-04-2024 Erythrocyte distribution width (RBC) [Ratio] 14.0 % 11.0-15.0 [facility] Estimated glomerular filtrat ion rate (GFR) non- Americanon 02-04-2024 GFR/1.73 sq M.predicted among non-blacks MDRD (S/P/Bld) [Vol rate/Area] mL/min/{1.73_m2} >=60 mL/min/1.73m 2 [facility] Globulin Calc (S) [Mass/Vol] on 02-04-2024 Globulin (S) [Mass/Vol] 3.7 g/dL [facility] Hematocrit Auto (Bld) [Volum e fraction]on 02-04-2024 Hematocrit (Bld) [Volume fraction] 36.8 % 36.0-48.0 [facility] Hemoglobin [Mass/volume] in Bloodon 02-04-2024 Hemoglobin (Bld) [Mass/Vol] 12.1 g/dL 12.0-16.0 [facility] Laboratory - Chemistry and C hemistry - challengeon 02-04-2024 Albumin [Mass/Vol] 3.2 g/dL Low 3.4-5.0 [facility] ALP [Catalytic activity/Vol] 98 U/L 46-116 [facility] ALT [Catalytic activity/Vol] 17 U/L 14-59 [facility] AST [Catalytic activity/Vol] 18 U/L 15-37 [facility] Bilirubin [Mass/Vol] 0.5 mg/dL 0.2-1.0 [facility] Calcium [Mass/Vol] 9.3 mg/dL 8.5-10.1 [facility] Chloride [Moles/Vol] 105 mmol/L 98-107 [facility] Cholesterol [Mass/Vol] 153 mg/dL <=200 [facility] Cholesterol in HDL [Mass/Vol] 65 mg/dL High 40-60 [facility] Comment on above: > or =60 mg/dl - LOW CARDIOVASCULAR RISK<40 mg/dl - HIGH CARDIOVASCULAR RISK CO2 [Moles/Vol] 26.5 mmol/L 21.0-32.0 [facility] Creatinine [Mass/Vol] 0.91 mg/dL 0.55-1.02 [facility] GFR/1.73 sq M.predicted MDRD (S/P/Bld) [Vol rate/Area] mL/min/{1.73_m2} >=60 mL/min/1.73m 2 [facility] Glucose [Mass/Vol] 103 mg/dL 74-106 [facility] Potassium [Moles/Vol] 4.1 mmol/L 3.5-5.1 [facility] Protein [Mass/Vol] 6.9 g/dL 6.4-8.2 [facility] Sodium [Moles/Vol] 142 mmol/L 136-145 [facility] Triglyceride [Mass/Vol] 153 mg/dL High <=150 [facility] Urea nitrogen [Mass/Vol] 10.0 mg/dL 7.0-18.0 [facility] Urea nitrogen/Creatinine [Mass ratio] 11.0 mg/mg [facility] Laboratory - Hematology and Cell countson 02-04-2024 Immature granulocytes/100 WBC (Bld) 0.2 % 0.0-0.5 [facility] Leukocytes [#/volume] correc talya for nucleated erythrocytes in Blood by Automated counon 02-04-2024 WBC corrected for nucl RBC Auto (Bld) [#/Vol] 5.6 10 3/uL 4.0-11.0 [facility] Lymphocytes Auto (Bld) [#/Vo l]on 02-04-2024 Lymphocytes (Bld) [#/Vol] 1.9 10 3/uL 1.2-3.8 [facility] Lymphocytes/100 WBC Auto (Bl d)on 02-04-2024 Lymphocytes/100 WBC (Bld) 34.8 % 20.5-60.0 [facility] MCH Auto (RBC) [Entitic mass ]on 02-04-2024 MCH (RBC) [Entitic mass] 28.6 pg 26.7-34.0 [facility] MCHC Auto (RBC) [Mass/Vol]on 02-04-2024 MCHC (RBC) [Mass/Vol] 32.9 g/dL 29.9-35.2 [facility] MCV Auto (RBC) [Entitic vol] on 02-04-2024 MCV (RBC) [Entitic vol] 87.0 fL 81.0-99.0 [facility] Monocytes Auto (Bld) [#/Vol] on 02-04-2024 Monocytes (Bld) [#/Vol] 0.5 10 3/uL 0.3-0.8 [facility] Monocytes/100 WBC Auto (Bld) on 02-04-2024 Monocytes/100 WBC (Bld) 8.6 % 1.7-12.0 [facility] Neutrophils Auto (Bld) [#/Vo l]on 02-04-2024 Neutrophils (Bld) [#/Vol] 3.0 10 3/uL 1.4-6.5 [facility] Neutrophils/100 WBC Auto (Bl d)on 02-04-2024 Neutrophils/100 WBC (Bld) 53.5 % 43.0-75.0 [facility] No Panel Informationon 02-03 Eosinophils # (Auto) 0.1 10 3/uL 0.0-0.7 [facility] Immature Granulocyte # (Auto) 0.01 10 3/uL 0.00-0.03 [facility] Platelet mean volume Auto (B ld) [Entitic vol]on 02-04-2024 Platelet mean volume (Bld) [Entitic vol] 10.4 fL 9.5-13.5 [facility] Platelets Auto (Bld) [#/Vol] on 02-04-2024 Platelets (Bld) [#/Vol] 306 10 3/uL 150-450 [facility] RBC Auto (Bld) [#/Vol]on RBC (Bld) [#/Vol] 4.23 10 6/uL 4.20-5.40 [facility] Serum or plasma albumin/glob ulin mass ratioon 02-04-2024 Albumin/Globulin [Mass ratio] 0.9 {ratio} [facility] Serum or plasma anion gap de terminationon 02-04-2024 Anion gap [Moles/Vol] 14.6 mmol[facility] Serum or plasma total choles terol/high density lipoprotein (HDL) cholesterol mass gracia 02-04-2024 Cholesterol.total/Cho lesterol in HDL [Mass ratio] 2.4 {ratio} [facility] Comment on above: 3.3 - 4.4 LOW RISK4. 4 - 7.1 AVERAGE RISK7.1 - 11.0 MODERATE RISK>11.0 HIGH RISK Urine Cultureon 11-23-2022 Bacteria identified Cx Nom (U) Reason for Exam Dysuria Urine <9,000 colonies/ml mixed bacterial skin contaminants 2 Days PERFORMED BY: [place] [address] PATHOLOGIST [employer] LIBRARIAN NINOSKA CUI M.D. [facility] Comment on above: Performed By: #### C UU #### [address] MG MAMM SCREEN 3D KEVIN CADon 02-03-2022 MG MAMM SCREEN 3D KEVIN CAD Patient: PIERCE CAREY Exam Date: 02/03/2022 : 1950 Gender:F Ordering : DR JOANN GREEN M.D. Admission #: [id number] Family : Order #: [id number] CLICK HERE TO VIEW EXAM RADIOLOGY REPORT [...] Treatments None Family Cancers None LOCATION: [facility] BREAST COMPOSITION: Heterogeneously dense,which may obscure [...] Escobar MD on 02/03/2022 at 14:28 Normal [facility] CBC AUTO DIFFon 01-14-2022 BASO # 0.0 103/ul Normal 0.0-0.1 [facility] Comment on above: Performed By: #### C BC #### [facility] [address] [place] [address] Dr. Giovanni Stewart Basophils/100 WBC (Bld) 0.8 % Normal 0.2-2.0 [facility] Comment on above: Performed By: #### C BC #### [facility] [address] [place] [address] Dr. Giovanni Stewart EO # 0.1 103/ul Normal 0.0-0.7 [facility] Comment on above: Performed By: #### C BC #### [facility] [address] [address] [address] Giovanni Stewart Eosinophils/100 WBC (Bld) 1.9 % Normal 0.9-7.0 [facility] Comment on above: Performed By: #### C BC #### [facility] [address] [place] [address] Dr. Giovanni Stewart Erythrocyte distribution width (RBC) [Ratio] 14.0 % Normal 11.0-15.0 [facility] Comment on above: Performed By: #### C BC #### [facility] [address] [place] [address] Dr. Giovanni Stewart Hematocrit (Bld) [Volume fraction] 38.7 % Normal 36.0-48.0 [facility] Comment on above: Performed By: #### C BC #### [facility] [address] [place] [address] Dr. Giovanni Stewart Hemoglobin (Bld) [Mass/Vol] 12.4 g/dL Normal 12.0-16.0 [facility] Comment on above: Performed By: #### C BC #### [facility] [address] [place] [address] Dr. Giovanni Stewart IG # 0.01 10e3/ul Normal 0.00-0.03 [facility] Comment on above: Performed By: #### C BC #### [facility] [address] [place] [address] Dr. Giovanni Stewart IG % 0.2 % Normal 0.0-0.5 [facility] Comment on above: Performed By: #### C BC #### [facility] [address] [place] [address] Dr. Giovanni Stewart LYMPH # 2.0 103/ul Normal 1.2-3.8 [facility] Comment on above: Performed By: #### C BC #### [facility] [address] [place] [address] Dr. Giovanni Stewart Lymphocytes/100 WBC (Bld) 39.4 % Normal 20.5-60.0 [facility] Comment on above: Performed By: #### C BC #### [facility] [address] [place] [address] Dr. Giovanni Stewart MANUAL DIFF REQ NO Normal [facility] Comment on above: Performed By: #### C BC #### [facility] [address] [place] [address] Dr. Giovanni Stewart MCH (RBC) [Entitic mass] 28.3 pg Normal 26.7-34.0 [facility] Comment on above: Performed By: #### C BC #### [facility] [address] [place] [address] Dr. Giovanni Stewart MCHC (RBC) [Mass/Vol] 32.0 g/dL Normal 29.9-35.2 [facility] Comment on above: Performed By: #### C BC #### [facility] [address] [place] [address] Dr. Giovanni Stewart MCV (RBC) [Entitic vol] 88.4 fL Normal 81.0-99.0 [facility] Comment on above: Performed By: #### C BC #### [facility] [address] [place] [address] Dr. Giovanni Stewart MONO # 0.4 103/ul Normal 0.3-0.8 [facility] Comment on above: Performed By: #### C BC #### [facility] [address] [place] [address] Dr. Giovanni Stewart Monocytes/100 WBC (Bld) 7.6 % Normal 1.7-12.0 [facility] Comment on above: Performed By: #### C BC #### [facility] [address] [place] [address] Dr. Giovanni Stewart NEUT # 2.6 103/ul Normal 1.4-6.5 [facility] Comment on above: Performed By: #### C BC #### [facility] [address] [place] [address] Dr. Giovanni Stewart Neutrophils/100 WBC (Bld) 50.1 % Normal 43.0-75.0 [facility] Comment on above: Performed By: #### C BC #### [facility] [address] [place] [address] Dr. Giovanni Stewart Platelet mean volume (Bld) [Entitic vol] 10.4 fL Normal 9.5-13.5 [facility] Comment on above: Performed By: #### C BC #### [facility] [address] [place] [address] Dr. Giovanni Stewart PLT 282 103/ul Normal 150-450 [facility] Comment on above: Performed By: #### C BC #### [facility] [address] [address] [address] Giovanni Stewart RBC 4.38 106/ul Normal 4.20-5.40 [facility] Comment on above: Performed By: #### C BC #### [facility] [address] [address] [address] Giovanni Stewart WBC 5.1 103/ul Normal 4.0-11.0 [facility] Comment on above: Performed By: #### C BC #### [facility] [address] [address] [address] Giovanni Stewart LIPID PROFILEon 01-14-2022 CHOL-HDL RATIO NORM SEE BELOW Normal [facility] Comment on above: Result Comment: 3.3 - 4.4 LOW RISK 4.4 - 7.1 AVERAGE RISK 7.1 - 11.0 MODERATE RISK >11.0 HIGH RISK Performed By: #### L IPID, CMP #### [facility] [address] [place] [address] Dr. Giovanni Stewart Cholesterol [Mass/Vol] 168 mg/dL Normal <=200 [facility] Comment on above: Performed By: #### L IPID, CMP #### [facility] [address] [place] [address] Dr. Giovanni Stewart Cholesterol in HDL [Mass/Vol] 69 mg/dL Critically high 40-60 [facility] Comment on above: Performed By: #### L IPID, CMP #### [facility] [address] [address] [address] Giovanni Stewart Cholesterol in LDL [Mass/Vol] 73.2 mg/dL Normal [facility] Comment on above: Performed By: #### L IPID, CMP #### [facility] [address] [address] [address] Giovanni Stewart Cholesterol.total/Cho lesterol in HDL [Mass ratio] 2.4 {ratio} Normal [facility] Comment on above: Performed By: #### L IPID, CMP #### [facility] [address] [address] [address] Giovanni Stewart HDL NORMAL > or = 60 mg/dl - LOW CARDIOVASCULAR RISK <40 mg/dl - HIGH CARDIOVASCULAR RISK Normal [facility] Comment on above: Performed By: #### L IPID, CMP #### [facility] [address] [address] [address] Giovanni Stewart LDL CALC NORMAL SEE BELOW Normal [facility] Comment on above: Result Comment: <100 mg/dl OPTIMAL 100 - 129 mg/dl NEAR OR ABOVE OPTIMAL 130 - 159 mg/dl BORDERLINE HIGH 160 - 189 mg/dl HIGH >190 mg/dl VERY HIGH Performed By: #### L IPID, CMP #### [facility] [address] [place] [address] Dr. Giovanni Stewart Triglyceride [Mass/Vol] 129 mg/dL Normal <=150 [facility] Comment on above: Performed By: #### L IPID, CMP #### [facility] [address] [place] [address] Dr. Giovanni Stewart VLDL CALC 25.8 mg/dL Normal [facility] Comment on above: Performed By: #### L IPID, CMP #### [facility] [address] [place] [address] Dr. Giovanni Stewart PROF 14(COMP METB)on 022 Albumin [Mass/Vol] 3.6 g/dL Normal 3.4-5.0 [facility] Comment on above: Performed By: #### L IPID, CMP #### [facility] [address] [place] [address] Dr. Giovanni Stewart Albumin/Globulin [Mass ratio] 1.0 {ratio} Normal [facility] Comment on above: Performed By: #### L IPID, CMP #### [facility] [address] [place] [address] Dr. Giovanni Stewart ALP [Catalytic activity/Vol] 88 U/L Normal 46-116 [facility] Comment on above: Performed By: #### L IPID, CMP #### [facility] [address] [place] [address] Dr. Giovanni Stewart ALT [Catalytic activity/Vol] 20 U/L Normal 14-59 [facility] Comment on above: Performed By: #### L IPID, CMP #### [facility] [address] [place] [address] Dr. Giovanni Stewart Anion gap [Moles/Vol] 12.9 mmol/L Normal [facility] Comment on above: Performed By: #### L IPID, CMP #### [facility] [address] [place] [address] Dr. Giovanni Stewart AST [Catalytic activity/Vol] 20 U/L Normal 15-37 [facility] Comment on above: Performed By: #### L IPID, CMP #### [facility] [address] [place] [address] Dr. Giovanni Stewart Bilirubin [Mass/Vol] 0.4 mg/dL Normal 0.2-1.0 [facility] Comment on above: Performed By: #### L IPID, CMP #### [facility] [address] [place] [address] Dr. Giovanni Stewart Calcium [Mass/Vol] 9.3 mg/dL Normal 8.5-10.1 [facility] Comment on above: Performed By: #### L IPID, CMP #### [facility] [address] [place] [address] Dr. Giovanni Stewart Chloride [Moles/Vol] 104 mmol/L Normal 98-107 [facility] Comment on above: Performed By: #### L IPID, CMP #### [facility] [address] [place] [address] Dr. Giovanni Stewart CO2 [Moles/Vol] 27.4 mmol/L Normal 21.0-32.0 [facility] Comment on above: Performed By: #### L IPID, CMP #### [facility] [address] [place] [address] Dr. Giovanni Stewart Creatinine [Mass/Vol] 0.79 mg/dL Normal 0.55-1.02 [facility] Comment on above: Performed By: #### L IPID, CMP #### [facility] [address] [place] [address] Dr. Giovanni Stewart EGFR-AF IRISH >60 Normal >=60 [facility] Comment on above: Performed By: #### L IPID, CMP #### [facility] [address] [address] [address] Giovanni Stewart EGFR-NON AF IRISH >60 Normal >=60 [facility] Comment on above: Performed By: #### L IPID, CMP #### [facility] [address] [address] [address] Giovanni Stewart Globulin (S) [Mass/Vol] 3.5 g/dL Normal [facility] Comment on above: Performed By: #### L IPID, CMP #### [facility] [address] [address] [address] Giovanni Stewart Glucose [Mass/Vol] 107 mg/dL Critically high 74-106 [facility] Comment on above: Performed By: #### L IPID, CMP #### [facility] [address] [address] [address] Giovanni Stewart Potassium [Moles/Vol] 4.3 mmol/L Normal 3.5-5.1 [facility] Comment on above: Performed By: #### L IPID, CMP #### [facility] [address] [address] [address] Giovanni Stewart Protein [Mass/Vol] 7.1 g/dL Normal 6.4-8.2 [facility] Comment on above: Performed By: #### L IPID, CMP #### [facility] [address] [address] [address] Giovanni Stewart Sodium [Moles/Vol] 140 mmol/L Normal 136-145 [facility] Comment on above: Performed By: #### L IPID, CMP #### [facility] [address] [place] [address] Dr. Giovanni Stewart Urea nitrogen [Mass/Vol] 14.0 mg/dL Normal 7.0-18.0 [facility] Comment on above: Performed By: #### L IPID, CMP #### [facility] [address] [place] [address] Dr. Giovanni Stewart Urea nitrogen/Creatinine [Mass ratio] 17.7 mg/mg Normal [facility] Comment on above: Performed By: #### L IPID, CMP #### [facility] [address] [address] [address] Giovanni Stewart Vital Signs Date Time Vital Sign Value Performing Clinician Facility 02-05-2024 11:19-0400 Body mass index (BMI) [Ratio] 27 kg/m2 [facility] 02-05-2024 11:19-0400 Diastolic blood pressure 70 mm[Hg] [facility] 02-05-2024 11:19-0400 Heart rate 85 /min [facility] 02-05-2024 11:19-0400 Systolic blood pressure 130 mm[Hg] [facility] 02-05-2024 11:11-0400 Body height 146.05 cm [facility] 02-05-2024 11:11-0400 Body weight 57.6 kg [facility] 02-02-2023 13:00-0400 Body height 151.13 cm Joann Green Other [employer] [facility] [employer] Other 02-02-2023 13:00-0400 Body mass index (BMI) [Ratio] 25.62 kg/m2 Joann Green Other [facility] Other 02-02-2023 13:00-0400 Body weight 58.51 kg Joann Green Other [facility] Other 02-02-2023 13:00-0400 Diastolic blood pressure 82 mm[Hg] Joann Green Other [facility] Other 02-02-2023 13:00-0400 Systolic blood pressure 142 mm[Hg] Joann Green Other [facility] Other Encounters Encounter Date Encounter Type Care Provider Facility Start: 02-05-2024 End: 02-05-[address] [facility] Work Phone: Start: 02-05-2024 End: 02-05-2024 Patient encounter procedure [facility] Work Phone: Start: 02-04-2024 Non-patient / Non-visit [facility] Work Phone: Start: 02-04-2024 Non-patient / Non-visit [facility] Work Phone: Start: 02-02-2023 End: 02-02-2023 ambulatory Joann Green Other [facility] Other Start: 02-02-2023 Patient encounter procedure Joann Green [facility] Start: 01-26-2023 End: 01-26-2023 ambulatory Joann Green Other [facility] Other Start: 01-26-2023 Telephone encounter Joann Green [facility] Start: 11-27-2022 End: 11-27-2022 ambulatory Fabby Zeng Other [facility] Other Start: 11-27-2022 Telephone encounter Fabby Zeng [facility] Start: 11-23-2022 End: 11-23-2022 ambulatory Joann Green Facility:[facility] Start: 11-23-2022 End: 11-23-2022 ambulatory DANYA Zeng Work Phone: [facility] Work Phone: Start: 11-23-2022 End: 11-23-2022 Departed Referred DANYA Zeng Work Phone: [facility] [place] Work Phone: Start: 02-03-2022 End: 02-04-[address] JOANN GREEN Facility: Start: 01-17-2022 Encounter for genera l adult medical examination without abnormal findings DR JOANN GREEN [facility] Start: 01-16-2022 Adult health examination Fabby Zeng Other [facility] Other Start: 01-14-2022 End: 01-15-[address] JOANN GREEN Facility:[facility] Start: 01-14-2022 End: 01-15-2022 Encounter for general adult medical examination without abnormal findings DR JOANN GREEN Facility:[facility] Procedures Date Procedure Procedure Detail Performing Clinician Start: 12-01-2017 Screening for malign ant neoplasm of colon Fabby Zeng Other Start: 12-02-2016 Screening mammography L juana Zeng Other Start: 11-26-2016 General examination of patient Fabby Zeng Other Depression screening Fabby Zeng Other Plan of Treatment Date Care Activity Detail Author Start: 11-23-2022 Bacteria identified in Urine by Culture [facility] Comprehensive metabo lic 2000 panel - Serum or Plasma [facility] Immunizations Immunization Date Immunization Notes Care Provider Fa cili 02-03-2022 COVID-19 Pfizer (Pediatric) Fabby Zeng Other [facility] 01-11-2022 influenza virus vaccine, split virus (incl. purified surface antigen) Fabby Zeng Other [facility] Other 01-11-2022 influenza virus vaccine, unspecified formulation [facility] 10-29-2021 COVID-19 Vaccine Pfi zer - Documentation Purposes Only Fabby Munizley Other [facility] 01-31-2021 COVID-19 Vaccine Pfi zer - Documentation Purposes Only Fabby Azucena Other [facility] 01-10-2021 influenza virus vaccine, split virus (incl. purified surface antigen) Fabby Azucena Other [facility] Other 01-10-2021 influenza virus vaccine, unspecified formulation [facility] 12-16-2019 influenza virus vaccine, split virus (incl. purified surface antigen) Fabby Zeng Other [facility] Other 12-16-2019 influenza virus vaccine, unspecified formulation [facility] 04-29-2019 zoster vaccine, live Fabby Azucena Other [facility] 12-02-2016 influenza virus vaccine, split virus (incl. purified surface antigen) Fabby Zeng Other [facility] Other 12-02-2016 influenza virus vaccine, unspecified formulation [facility] 12-02-2016 pneumococcal polysaccharide vaccine, 23 valent Fabby Zeng Other [facility] 12-28-2015 pneumococcal conjuga te vaccine, 13 valent Fabby Zeng Other [facility] Payers Date Payer Category Payer Self-pay [id number] 1959 Medicare [id number] 1959 Unknown [id number] 1950 Unknown [id number] 1950 Unknown [id number] Unknown [id number] Social History Date Type Detail Facility Tobacco smoking status NHIS Unknown if ever smoked [facility] Work Phone: Start: 1950 Sex Assigned At Female F [facility] Sex Assigned At Sex Assigned At Bir th [facility] Other Start: 02-05-2024 Tobacco smoking status NHIS Never smoked tobacco (finding) [facility] Evaluation note 02-02-2023 Note Date & Type [...] mammogram for breast cancer (ICD-10 - Z12.31) [facility] Other Evaluation note 01-26-2023 Note Date & Type Note Facility 01-26-2023 Evaluation note Encounter Date Diagnosis Assessment Notes Jan, Dyslipidemia (ICD-10 - E78.5) [facility] Other Evaluation note Note Date & Type Note Facility Evaluation note No assessment information [facility] Work Phone: Evaluation note Note Date & Type Note Facility Evaluation note No Information [facility] Other History general Narrative - Reported Note Date & Type Note Facility History general Narrative - Reported Type Medical History GERD (gastroesophageal reflux di sease) Medical History Hypercholesteremia Surgical History salpingo-oophorectomy, left [facility] Other History general Narrative - Reported Note Date & Type Note Facility History general Narrative - Reported Type Medical History GERD (gastroesophageal reflux di sease) Medical History Hypercholesteremia Surgical History salpingo-oophorectomy, left Hospitalization History SEE SURGICAL HX [facility] Other Summary Purpose Family History Relationship Condition Age at Onset Recorded Date/T vishal brother Malignant neoplasm Unknown Hypertension Unknown father Unknown History of stroke Unknown mother Unknown Advance Directives Advance Directive Response Recorded Date/ Time Advance Directives No December 7:34pm Advance Directive Response Recorded Date/ Time Advance Directives No January 29, 2024 11:35am Chief Complaint and Reason for Visit Chief Complaint Dysuria Chief Complaint CC Adult Risk Strati fication wellness Additional Source Comments INFORMATION SOURCE (unrecogn ized section and content) DATE CREATED AUTHOR 02/09/2022 [facility] DATE CREATED AUTHOR AUTHOR'S ORGANIZ ATION 11/29/2022 [facility] Care Teams (unrecognized sec tion and content) Team Status: Inactive Member Role Status Dates Fabby Zeng APRN Attending Provider Active Team Status: Active Member Role Status Dates Joann Green MD Primary Care Provider Active Team Status: Active Member Role Status Dates Joann Green MD Primary Care Provide r, Attending Provider Active Start: February 04, 2024 Team Status: Inactive Member Role Status Dates Joann Green MD Primary Care Provide r, Attending Provider Active Start: February 05, 2024 End: February 05, 2024 Goals (unrecognized section and content) Goals may be documented in a n alternate sectionNo InformationNo InformationNo InformationGoals may be documented in an alternate section REASON FOR VISIT (unrecogniz ed section and [...] BE BASED ON THE PRIMARY CLINICAL RECORDS. [employer] provides no warranty or guarantee of the accuracy or completeness of information in this document.
== END 2024-02-08 12:51 | disposition home or self-care (01) ==
LOC: MAMMO 12:50
PROVIDERS: PCP Family Medicine; Visit Provider Family Medicine
DX: Z12.31 Encounter for screening mammogram for malignant neoplasm of breast (principal)
CPT/HCPCS: 77063; 77067

== ENCOUNTER 2025-01-27 09:29 | Outpatient (OUT) | payer MEDICARE, SELFPAY ==
--- OUTSIDE RECORDS SUMMARY | 2025-01-27 09:32 | XMS_ITS | Clinical Summary ---
Author Organization [employer] [facility] tem Address [id number] [place] [address] Care Team Providers Care Betting Agency Manager Name Role Phone Joann Green MD Primary Care Provider [phone] Allergies Active Allergy Reactions Criticality Noted Date Comments Iodinated Contrast Media 06/21/2018 Penicillins 06/21/2018 Medications atorvastatin (LIPITOR) 20 mg tablet 04/24/2018 Active sodium,potassium ,mag sulfates (SUPREP BOWEL PREP KIT) 17.5-3.13-1.6 gram recon soln 177 ml,actual weight, 2 times daily, Oral 1 kit 06/21/2018 Active omeprazole (PriLOSEC) 20 mg capsule Take 20 mg by mouth daily. Active Active Problems No known active problems Family History Medical History Relation Name Comments Prostate cancer Brother Hypertension Father Hypertension Maternal Grandfather Hypertension Maternal Grandmother Hypertension Mother Hypertension Paternal Grandfather Hypertension Paternal Grandmother Relation Name Status Comments Brother Father Maternal Grandfather Maternal Grandmother Mother Paternal Grandfather Paternal Grandmother Social History Tobacco Use Types Packs/Day Years Used Date Smoking Tobacco: Never Smokeless Tobacco: Never Alcohol Use Standard Drinks/Week Comments Yes 0 (1 standard drink = 0.6 oz pur e alcohol) SOCIAL Childcare Answer Date Recorded Childcare Unknown 09/16/2018 Employment Answer Date Recorded Employment Unknown 09/16/2018 Purpose - Life Answer Date Recorded Purpose and direction in life Unknown Comments Unknown Sex and Gender Information Value Date Recorded Sex Assigned at Not on file Legal Sex Female 2:21 PM EST Gender Identity Not on file Sexual Orientation Not on file Last Filed Vital Signs Vital Sign Reading Time Taken Comments Blood Pressure 112/76 07/20/2018 2:40 PM EDT Pulse - - Temperature - - Respiratory Rate - - Oxygen Saturation - - Inhaled Oxygen Concentration - - Weight 58.1 kg (128 lb) 07/20/2018 2:40 PM EDT Height 152.4 cm (5') 07/20/2018 2:40 PM EDT Body Mass Index 25 07/20/2018 2:40 PM EDT Plan of Treatment Health Maintenance Due Date Last Done Comments Depression Screening 1962 Tobacco Screening 1962 Adult BMI Screening 1968 DTaP,Tdap and Td Vaccines (1 - Tdap) 1969 Zoster (Shingles) Vaccine (1 of 2) 2000 Fall Risk Screening 06/20/2015 Influenza Vaccine 12/12/2024 Colonoscopy 07/14/2028 07/14/2018 Medical Devices Not on file Insurance MEDICARE [facility] Care Teams Betting Agency Manager Relationship Specialty Start Date End Date Joann Green MD [facility] [place] [address] PCP - General 06/15/18
--- OUTSIDE RECORDS SUMMARY | 2025-01-27 09:32 | XMS_ITS | Clinical Summary ---
Author Organization [facility] Healthcare Address [address] [place] [address] Care Team Providers Care Forensics Analyst Name Role Phone Unavailable Primary Care Provider Unavailabl e Social History Tobacco Use Types Packs/Day Years Used Date Smoking Tobacco: Never Assessed Comments Unknown Sex and Gender Information Value Date Recorded Sex Assigned at Not on file Legal Sex Female 11:01 PM EDT Gender Identity Not on file Sexual Orientation Not on file Last Filed Vital Signs Vital Sign Reading Time Taken Comments Blood Pressure - - Pulse - - Temperature - - Respiratory Rate - - Oxygen Saturation - - Inhaled Oxygen Concentration - - Weight 59 kg (130 lb) 12/27/2019 12:00 PM EDT Height 152.4 cm (5') 12/27/2019 12:00 PM EDT Body Mass Index 25.39 12/27/2019 12:00 PM EDT Plan of Treatment Not on file Insurance MEDICARE
--- OUTSIDE RECORDS SUMMARY | 2025-01-27 09:34 | XMS_ITS | CCD ---
Author Organization [facility] Care Team Providers Care Bell Tier Name Role Phone DR JOANN GREEN Primary Care Unavailable WEST, DR RICKIE Sweeney Consulting Unavailable JOSHUA, DR JOANN Deluca Admitting Unavailable JOSHUA, DR JOANN Deluca Attending Unavailable JOSHUA, DR JOANN Deluca Consulting Unavailable JOSHUA, DR JOANN Deluca Primary Care Unavailable JOSHUA, DR JOANN Deluca Admitting Unavailable JOSHUA, DR JOANN Deluca Attending Unavailable JOSHUA, DR JOANN Deluca Consulting Unavailable DANYA Zeng Attending Provider [phone] Fabby Zeng Unavailable Joann Green Primary Care Unavailable Fabby Zeng Attending Unavailable Fabby Zeng Admitting Unavailable Joann Green Unavailable Allergies Allergy Classification Reported Allergen(s) Allergy Type Date of Onset Reaction(s) Facility (1 source) Iodine (And Iodine Containting Drugs) Drug allergy (disorder) [facility] (1 source) Penicillin Drug Allergy [facility] (4 sources) Penicillin V Drug Allergy 4 [facility] (3 sources) [employer] *MEDICAL DEVICES AND SUPP Propensity to adverse reactions Comment:CT DYE [place] [employer] Other (3 sources) Penicillin G Benzathine & Proc Drug allergy Unknown [facility] Other (1 source) Penicillin G Benzathine Allergy to substance 4 [facility] (1 source) [employer] *MEDI Allergy to substance 3 Comment:[facility] Medications Current Medications Medication Drug Class(es) [...] Active oral daily for 0 *Reorder from 8020select for eRx and Interaction Alerts* Jan, Not-Taking [...] Start: 02-27-2022 take 1 capsule by mo [facility] once daily Omeprazole 20mg omeprazole 20mg, 1 (one) Capsule daily # 0, 02/27/2022, No Refill. Active oral daily for 0 *Pick strength-form from 8020select for eRX* 17 Feb, 2022 Not-Taking take 1 capsule by mo [facility] every twenty-four hours Omeprazole 20 MG 1 [...] Basophils (Bld) [#/Vol] 0.1 10 3/uL 0.0-0.1 [facility] Basophils/100 WBC Auto (Bld) on 02-04-2024 Basophils/100 WBC (Bld) 0.9 % 0.2-2.0 [facility] Cholesterol in LDL Calc [Mas s/Vol]on 02-04-2024 Cholesterol in LDL [Mass/Vol] 58.0 mg/dL [facility] Comment on above: <100 mg/dl [id number] 0-129 mg/dl NEAR OR ABOVE [id number] mg/dl BORDERLINE [id number] mg/dl HIGH>190 mg/dl VERY HIGH Cholesterol in VLDL Calc [Ma ss/Vol]on 02-04-2024 Cholesterol in VLDL [Mass/Vol] 30.6 mg/dL [facility] Eosinophils/100 WBC Auto (Bl d)on 02-04-2024 Eosinophils/100 WBC (Bld) 2.0 % 0.9-7.0 [facility] Erythrocyte distribution wid th Auto (RBC) [Ratio]on 02-04-2024 Erythrocyte distribution width (RBC) [Ratio] 14.0 % 11.0-15.0 [facility] Estimated glomerular filtrat ion rate (GFR) non- Americanon 02-04-2024 GFR/1.73 sq M.predicted among non-blacks MDRD (S/P/Bld) [Vol rate/Area] mL/min/{1.73_m2} >=60 mL/min/1.73m 2 [facility] Globulin Calc (S) [Mass/Vol] on 02-04-2024 Globulin (S) [Mass/Vol] 3.7 g/dL [facility] Hematocrit Auto (Bld) [Volum e fraction]on 02-04-2024 Hematocrit (Bld) [Volume fraction] 36.8 % 36.0-48.0 [facility] Hemoglobin [Mass/volume] in Bloodon 02-04-2024 Hemoglobin (Bld) [Mass/Vol] 12.1 g/dL 12.0-16.0 [facility] Laboratory - Chemistry and C hemistry - challengeon 02-04-2024 Albumin [Mass/Vol] 3.2 g/dL Low 3.4-5.0 [facility] ALP [Catalytic activity/Vol] 98 U/L 46-116 [facility] ALT [Catalytic activity/Vol] 17 U/L 14-59 [facility] AST [Catalytic activity/Vol] 18 U/L 15-37 [facility] Bilirubin [Mass/Vol] 0.5 mg/dL 0.2-1.0 [facility] Calcium [Mass/Vol] 9.3 mg/dL 8.5-10.1 [facility] Chloride [Moles/Vol] 105 mmol/L 98-107 [facility] Cholesterol [Mass/Vol] 153 mg/dL <=200 [facility] Cholesterol in HDL [Mass/Vol] 65 mg/dL High 40-60 [facility] Comment on above: > or =60 mg/dl - LOW CARDIOVASCULAR RISK<40 mg/dl - HIGH CARDIOVASCULAR RISK CO2 [Moles/Vol] 26.5 mmol/L 21.0-32.0 [facility] Creatinine [Mass/Vol] 0.91 mg/dL 0.55-1.02 [facility] GFR/1.73 sq M.predicted MDRD (S/P/Bld) [Vol rate/Area] mL/min/{1.73_m2} >=60 mL/min/1.73m 2 [facility] Glucose [Mass/Vol] 103 mg/dL 74-106 [facility] Potassium [Moles/Vol] 4.1 mmol/L 3.5-5.1 [facility] Protein [Mass/Vol] 6.9 g/dL 6.4-8.2 [facility] Sodium [Moles/Vol] 142 mmol/L 136-145 [facility] Triglyceride [Mass/Vol] 153 mg/dL High <=150 [facility] Urea nitrogen [Mass/Vol] 10.0 mg/dL 7.0-18.0 [facility] Urea nitrogen/Creatinine [Mass ratio] 11.0 mg/mg [facility] Laboratory - Hematology and Cell countson 02-04-2024 Immature granulocytes/100 WBC (Bld) 0.2 % 0.0-0.5 [facility] Leukocytes [#/volume] correc talya for nucleated erythrocytes in Blood by Automated counon 02-04-2024 WBC corrected for nucl RBC Auto (Bld) [#/Vol] 5.6 10 3/uL 4.0-11.0 [facility] Lymphocytes Auto (Bld) [#/Vo l]on 02-04-2024 Lymphocytes (Bld) [#/Vol] 1.9 10 3/uL 1.2-3.8 [facility] Lymphocytes/100 WBC Auto (Bl d)on 02-04-2024 Lymphocytes/100 WBC (Bld) 34.8 % 20.5-60.0 [facility] MCH Auto (RBC) [Entitic mass ]on 02-04-2024 MCH (RBC) [Entitic mass] 28.6 pg 26.7-34.0 [facility] MCHC Auto (RBC) [Mass/Vol]on 02-04-2024 MCHC (RBC) [Mass/Vol] 32.9 g/dL 29.9-35.2 [facility] MCV Auto (RBC) [Entitic vol] on 02-04-2024 MCV (RBC) [Entitic vol] 87.0 fL 81.0-99.0 [facility] Monocytes Auto (Bld) [#/Vol] on 02-04-2024 Monocytes (Bld) [#/Vol] 0.5 10 3/uL 0.3-0.8 [facility] Monocytes/100 WBC Auto (Bld) on 02-04-2024 Monocytes/100 WBC (Bld) 8.6 % 1.7-12.0 [facility] Neutrophils Auto (Bld) [#/Vo l]on 02-04-2024 Neutrophils (Bld) [#/Vol] 3.0 10 3/uL 1.4-6.5 [facility] Neutrophils/100 WBC Auto (Bl d)on 02-04-2024 Neutrophils/100 WBC (Bld) 53.5 % 43.0-75.0 [facility] No Panel Informationon 02-03 Eosinophils # (Auto) 0.1 10 3/uL 0.0-0.7 [facility] Immature Granulocyte # (Auto) 0.01 10 3/uL 0.00-0.03 [facility] Platelet mean volume Auto (B ld) [Entitic vol]on 02-04-2024 Platelet mean volume (Bld) [Entitic vol] 10.4 fL 9.5-13.5 [facility] Platelets Auto (Bld) [#/Vol] on 02-04-2024 Platelets (Bld) [#/Vol] 306 10 3/uL 150-450 [facility] RBC Auto (Bld) [#/Vol]on RBC (Bld) [#/Vol] 4.23 10 6/uL 4.20-5.40 [facility] Serum or plasma albumin/glob ulin mass ratioon 02-04-2024 Albumin/Globulin [Mass ratio] 0.9 {ratio} [facility] Serum or plasma anion gap de terminationon 02-04-2024 Anion gap [Moles/Vol] 14.6 mmol[facility] Serum or plasma total choles terol/high density lipoprotein (HDL) cholesterol mass gracia 02-04-2024 Cholesterol.total/Cho lesterol in HDL [Mass ratio] 2.4 {ratio} [facility] Comment on above: 3.3 - 4.4 LOW RISK4. 4 - 7.1 AVERAGE RISK7.1 - 11.0 MODERATE RISK>11.0 HIGH RISK Urine Cultureon 11-23-2022 Bacteria identified Cx Nom (U) Reason for Exam Dysuria Urine <9,000 colonies/ml mixed bacterial skin contaminants 2 Days PERFORMED BY: [place] [address] PATHOLOGIST FERMENTER WINE NINOSKA CUI M.D. [facility] Comment on above: Performed By: #### C UU #### [address] MG MAMM SCREEN 3D KEVIN CADon 02-03-2022 MG MAMM SCREEN 3D KEVIN CAD Patient: PIERCE CAREY Exam Date: 02/03/2022 : 1950 Gender:F Ordering : DR JOANN GREEN M.D. Admission #: [id number] Family : Order #: [id number] CLICK HERE TO VIEW EXAM RADIOLOGY REPORT [...] Treatments None Family Cancers None LOCATION: [facility] BREAST COMPOSITION: Heterogeneously dense,which may obscure [...] Escobar MD on 02/03/2022 at 14:28 Normal [facility] CBC AUTO DIFFon 01-14-2022 BASO # 0.0 103/ul Normal 0.0-0.1 [facility] Comment on above: Performed By: #### C BC #### [facility] [address] [place] [address] Dr. Giovanni Stewart Basophils/100 WBC (Bld) 0.8 % Normal 0.2-2.0 [facility] Comment on above: Performed By: #### C BC #### [facility] [address] [place] [address] Dr. Giovanni Stewart EO # 0.1 103/ul Normal 0.0-0.7 [facility] Comment on above: Performed By: #### C BC #### [facility] [address] [address] [address] Giovanni Stewart Eosinophils/100 WBC (Bld) 1.9 % Normal 0.9-7.0 [facility] Comment on above: Performed By: #### C BC #### [facility] [address] [place] [address] Dr. Giovanni Stewart Erythrocyte distribution width (RBC) [Ratio] 14.0 % Normal 11.0-15.0 [facility] Comment on above: Performed By: #### C BC #### [facility] [address] [place] [address] Dr. Giovanni Stewart Hematocrit (Bld) [Volume fraction] 38.7 % Normal 36.0-48.0 [facility] Comment on above: Performed By: #### C BC #### [facility] [address] [place] [address] Dr. Giovanni Stewart Hemoglobin (Bld) [Mass/Vol] 12.4 g/dL Normal 12.0-16.0 [facility] Comment on above: Performed By: #### C BC #### [facility] [address] [place] [address] Dr. Giovanni Stewart IG # 0.01 10e3/ul Normal 0.00-0.03 [facility] Comment on above: Performed By: #### C BC #### [facility] [address] [place] [address] Dr. Giovanni Stewart IG % 0.2 % Normal 0.0-0.5 [facility] Comment on above: Performed By: #### C BC #### [facility] [address] [place] [address] Dr. Giovanni Stewart LYMPH # 2.0 103/ul Normal 1.2-3.8 [facility] Comment on above: Performed By: #### C BC #### [facility] [address] [place] [address] Dr. Giovanni Stewart Lymphocytes/100 WBC (Bld) 39.4 % Normal 20.5-60.0 [facility] Comment on above: Performed By: #### C BC #### [facility] [address] [place] [address] Dr. Giovanni Stewart MANUAL DIFF REQ NO Normal [facility] Comment on above: Performed By: #### C BC #### [facility] [address] [place] [address] Dr. Giovanni Stewart MCH (RBC) [Entitic mass] 28.3 pg Normal 26.7-34.0 [facility] Comment on above: Performed By: #### C BC #### [facility] [address] [place] [address] Dr. Giovanni Stewart MCHC (RBC) [Mass/Vol] 32.0 g/dL Normal 29.9-35.2 [facility] Comment on above: Performed By: #### C BC #### [facility] [address] [place] [address] Dr. Giovanni Stewart MCV (RBC) [Entitic vol] 88.4 fL Normal 81.0-99.0 [facility] Comment on above: Performed By: #### C BC #### [facility] [address] [place] [address] Dr. Giovanni Stewart MONO # 0.4 103/ul Normal 0.3-0.8 [facility] Comment on above: Performed By: #### C BC #### [facility] [address] [place] [address] Dr. Giovanni Stewart Monocytes/100 WBC (Bld) 7.6 % Normal 1.7-12.0 [facility] Comment on above: Performed By: #### C BC #### [facility] [address] [place] [address] Dr. Giovanni Stewart NEUT # 2.6 103/ul Normal 1.4-6.5 [facility] Comment on above: Performed By: #### C BC #### [facility] [address] [place] [address] Dr. Giovanni Stewart Neutrophils/100 WBC (Bld) 50.1 % Normal 43.0-75.0 [facility] Comment on above: Performed By: #### C BC #### [facility] [address] [place] [address] Dr. Giovanni Stewart Platelet mean volume (Bld) [Entitic vol] 10.4 fL Normal 9.5-13.5 [facility] Comment on above: Performed By: #### C BC #### [facility] [address] [place] [address] Dr. Giovanni Stewart PLT 282 103/ul Normal 150-450 [facility] Comment on above: Performed By: #### C BC #### [facility] [address] [address] [address] Giovanni Stewart RBC 4.38 106/ul Normal 4.20-5.40 [facility] Comment on above: Performed By: #### C BC #### [facility] [address] [address] [address] Giovanni Stewart WBC 5.1 103/ul Normal 4.0-11.0 [facility] Comment on above: Performed By: #### C BC #### [facility] [address] [address] [address] Giovanni Stewart LIPID PROFILEon 01-14-2022 CHOL-HDL RATIO NORM SEE BELOW Normal [facility] Comment on above: Result Comment: 3.3 - 4.4 LOW RISK 4.4 - 7.1 AVERAGE RISK 7.1 - 11.0 MODERATE RISK >11.0 HIGH RISK Performed By: #### L IPID, CMP #### [facility] [address] [place] [address] Dr. Giovanni Stewart Cholesterol [Mass/Vol] 168 mg/dL Normal <=200 [facility] Comment on above: Performed By: #### L IPID, CMP #### [facility] [address] [place] [address] Dr. Giovanni Stewart Cholesterol in HDL [Mass/Vol] 69 mg/dL Critically high 40-60 [facility] Comment on above: Performed By: #### L IPID, CMP #### [facility] [address] [address] [address] Giovanni Stewart Cholesterol in LDL [Mass/Vol] 73.2 mg/dL Normal [facility] Comment on above: Performed By: #### L IPID, CMP #### [facility] [address] [address] [address] Giovanni Stewart Cholesterol.total/Cho lesterol in HDL [Mass ratio] 2.4 {ratio} Normal [facility] Comment on above: Performed By: #### L IPID, CMP #### [facility] [address] [address] [address] Giovanni Stewart HDL NORMAL > or = 60 mg/dl - LOW CARDIOVASCULAR RISK <40 mg/dl - HIGH CARDIOVASCULAR RISK Normal [facility] Comment on above: Performed By: #### L IPID, CMP #### [facility] [address] [address] [address] Giovanni Stewart LDL CALC NORMAL SEE BELOW Normal [facility] Comment on above: Result Comment: <100 mg/dl OPTIMAL 100 - 129 mg/dl NEAR OR ABOVE OPTIMAL 130 - 159 mg/dl BORDERLINE HIGH 160 - 189 mg/dl HIGH >190 mg/dl VERY HIGH Performed By: #### L IPID, CMP #### [facility] [address] [place] [address] Dr. Giovanni Stewart Triglyceride [Mass/Vol] 129 mg/dL Normal <=150 [facility] Comment on above: Performed By: #### L IPID, CMP #### [facility] [address] [place] [address] Dr. Giovanni Stewart VLDL CALC 25.8 mg/dL Normal [facility] Comment on above: Performed By: #### L IPID, CMP #### [facility] [address] [place] [address] Dr. Giovanni Stewart PROF 14(COMP METB)on 022 Albumin [Mass/Vol] 3.6 g/dL Normal 3.4-5.0 [facility] Comment on above: Performed By: #### L IPID, CMP #### [facility] [address] [place] [address] Dr. Giovanni Stewart Albumin/Globulin [Mass ratio] 1.0 {ratio} Normal [facility] Comment on above: Performed By: #### L IPID, CMP #### [facility] [address] [place] [address] Dr. Giovanni Stewart ALP [Catalytic activity/Vol] 88 U/L Normal 46-116 [facility] Comment on above: Performed By: #### L IPID, CMP #### [facility] [address] [place] [address] Dr. Giovanni Stewart ALT [Catalytic activity/Vol] 20 U/L Normal 14-59 [facility] Comment on above: Performed By: #### L IPID, CMP #### [facility] [address] [place] [address] Dr. Giovanni Stewart Anion gap [Moles/Vol] 12.9 mmol/L Normal [facility] Comment on above: Performed By: #### L IPID, CMP #### [facility] [address] [place] [address] Dr. Giovanni Stewart AST [Catalytic activity/Vol] 20 U/L Normal 15-37 [facility] Comment on above: Performed By: #### L IPID, CMP #### [facility] [address] [place] [address] Dr. Giovanni Stewart Bilirubin [Mass/Vol] 0.4 mg/dL Normal 0.2-1.0 [facility] Comment on above: Performed By: #### L IPID, CMP #### [facility] [address] [place] [address] Dr. Giovanni Stewart Calcium [Mass/Vol] 9.3 mg/dL Normal 8.5-10.1 [facility] Comment on above: Performed By: #### L IPID, CMP #### [facility] [address] [place] [address] Dr. Giovanni Stewart Chloride [Moles/Vol] 104 mmol/L Normal 98-107 [facility] Comment on above: Performed By: #### L IPID, CMP #### [facility] [address] [place] [address] Dr. Giovanni Stewart CO2 [Moles/Vol] 27.4 mmol/L Normal 21.0-32.0 [facility] Comment on above: Performed By: #### L IPID, CMP #### [facility] [address] [place] [address] Dr. Giovanni Stewart Creatinine [Mass/Vol] 0.79 mg/dL Normal 0.55-1.02 [facility] Comment on above: Performed By: #### L IPID, CMP #### [facility] [address] [place] [address] Dr. Giovanni Stewart EGFR-AF CAMBODIAN >60 Normal >=60 [facility] Comment on above: Performed By: #### L IPID, CMP #### [facility] [address] [address] [address] Giovanni Stewart EGFR-NON AF CAMBODIAN >60 Normal >=60 [facility] Comment on above: Performed By: #### L IPID, CMP #### [facility] [address] [address] [address] Giovanni Stewart Globulin (S) [Mass/Vol] 3.5 g/dL Normal [facility] Comment on above: Performed By: #### L IPID, CMP #### [facility] [address] [address] [address] Giovanni Stewart Glucose [Mass/Vol] 107 mg/dL Critically high 74-106 [facility] Comment on above: Performed By: #### L IPID, CMP #### [facility] [address] [address] [address] Giovanni Stewart Potassium [Moles/Vol] 4.3 mmol/L Normal 3.5-5.1 [facility] Comment on above: Performed By: #### L IPID, CMP #### [facility] [address] [address] [address] Giovanni Stewart Protein [Mass/Vol] 7.1 g/dL Normal 6.4-8.2 [facility] Comment on above: Performed By: #### L IPID, CMP #### [facility] [address] [address] [address] Giovanni Stewart Sodium [Moles/Vol] 140 mmol/L Normal 136-145 [facility] Comment on above: Performed By: #### L IPID, CMP #### [facility] [address] [place] [address] Dr. Giovanni Stewart Urea nitrogen [Mass/Vol] 14.0 mg/dL Normal 7.0-18.0 [facility] Comment on above: Performed By: #### L IPID, CMP #### [facility] [address] [place] [address] Dr. Giovanni Stewart Urea nitrogen/Creatinine [Mass ratio] 17.7 mg/mg Normal [facility] Comment on above: Performed By: #### L IPID, CMP #### [facility] [address] [address] [address] Giovanni Stewart Vital Signs Date Time Vital Sign Value Performing Clinician Facility 02-05-2024 11:19-0400 Body mass index (BMI) [Ratio] 27 kg/m2 [facility] 02-05-2024 11:19-0400 Diastolic blood pressure 70 mm[Hg] [facility] 02-05-2024 11:19-0400 Heart rate 85 /min [facility] 02-05-2024 11:19-0400 Systolic blood pressure 130 mm[Hg] [facility] 02-05-2024 11:11-0400 Body height 146.05 cm [facility] 02-05-2024 11:11-0400 Body weight 57.6 kg [facility] 02-02-2023 13:00-0400 Body height 151.13 cm Joann Green Other [employer] [facility] [employer] Other 02-02-2023 13:00-0400 Body mass index (BMI) [Ratio] 25.62 kg/m2 Joann Green Other [facility] Other 02-02-2023 13:00-0400 Body weight 58.51 kg Joann Green Other [facility] Other 02-02-2023 13:00-0400 Diastolic blood pressure 82 mm[Hg] Joann Green Other [facility] Other 02-02-2023 13:00-0400 Systolic blood pressure 142 mm[Hg] Joann Green Other [facility] Number Other Encounters Encounter Date Encounter Type Care Provider Facility Start: 02-05-2024 End: 02-05-2024 ambulatory [facility] Work Phone: Start: 02-05-2024 End: 02-05-2024 Patient encounter procedure [facility] Work Phone: Start: 02-04-2024 Non-patient / Non-visit [facility] Work Phone: Start: 02-04-2024 Non-patient / Non-visit [facility] [employer] Work Phone: Start: 02-02-2023 End: 02-02-2023 ambulatory Joann Green Other Mr. Number Other Start: 02-02-2023 Patient encounter procedure Joann Green [facility] Start: 01-26-2023 End: 01-26-2023 ambulatory Joann Green Other Mr[facility] [employer] Other Start: 01-26-2023 Telephone encounter Joann Green [facility] Start: 11-27-2022 End: 11-27-2022 ambulatory Fabby Zeng Other Mr. Number Other Start: 11-27-2022 Telephone encounter Fabby Zeng [facility] Start: 11-23-2022 End: 11-23-2022 ambulatory Joann Green Facility:[facility] Start: 11-23-2022 End: 11-23-2022 ambulatory DANYA Zeng Work Phone: [facility] Work Phone: Start: 11-23-2022 End: 11-23-2022 Departed Referred DANYA Zeng Work Phone: [facility] [place] Work Phone: Start: 02-03-2022 End: 02-04-[address] JOANN GREEN Facility: Start: 01-17-2022 Encounter for genera l adult medical examination without abnormal findings DR JOANN GREEN [facility] Start: 01-16-2022 Adult health examination Fabby Zeng Other Mr. Number Other Start: 01-14-2022 End: 01-15-[address] [...] 11-23-2022 Bacteria identified in Urine by Culture [facility] Comprehensive metabo lic 2000 panel - Serum or Plasma [facility] Immunizations Immunization Date Immunization Notes Care Provider Fa cili 02-03-2022 COVID-19 Pfizer (Pediatric) Fabby Zeng Other [facility] 01-11-2022 influenza virus vaccine, split virus (incl. purified surface antigen) Fabby Zeng Other [facility] [employer] Other 01-11-2022 influenza virus vaccine, unspecified formulation [facility] 10-29-2021 COVID-19 Vaccine Pfi zer - Documentation Purposes Only Fabby Munizley Other [facility] 01-31-2021 COVID-19 Vaccine Pfi zer - Documentation Purposes Only Fabby Azucena Other [facility] 01-10-2021 influenza virus vaccine, split virus (incl. purified surface antigen) Fabby [employer] Other [facility] Number Other 01-10-2021 influenza virus vaccine, unspecified formulation [facility] 12-16-2019 influenza virus vaccine, split virus (incl. purified surface antigen) Fabby Zeng Other [facility] [employer] Other 12-16-2019 influenza virus vaccine, unspecified formulation [facility] 04-29-2019 zoster vaccine, live Fabby Azucena Other [facility] 12-02-2016 influenza virus vaccine, split virus (incl. purified surface antigen) Fabby Zeng Other [facility] [employer] Other 12-02-2016 influenza virus vaccine, unspecified formulation [facility] 12-02-2016 pneumococcal polysaccharide vaccine, 23 valent Fabby Zeng Other [facility] 12-28-2015 pneumococcal conjuga te vaccine, 13 valent Fabby Zeng Other [facility] Payers Date Payer Category Payer Self-pay [id number] 1959 Medicare [id number] 1959 Unknown [id number] 1950 Unknown [id number] 2.16.84 [id number] 1950 Unknown [id number] 2.16.84 [id number] Unknown [id number] 2.16.8 [id number] Social History Date Type Detail Facility Tobacco smoking status NHIS Unknown if ever smoked [facility] Work Phone: Start: 1950 Sex Assigned At Female F [facility] Sex Assigned At Sex Assigned At Bir th [facility] [employer] Other Start: 02-05-2024 Tobacco smoking status NHIS Never smoked tobacco (finding) [facility] Evaluation note 02-02-2023 Note Date & [...] mammogram for breast cancer (ICD-10 - Z12.31) Mr. Number Other Evaluation note 01-26-2023 Note Date & Type Note Facility 01-26-2023 Evaluation note Encounter Date Diagnosis Assessment Notes Jan, Dyslipidemia (ICD-10 - E78.5) Mr. Number Other Evaluation note Note Date & Type Note Facility Evaluation note No assessment information [facility] Work Phone: Evaluation note Note Date & Type Note Facility Evaluation note No Information [employer] Other History general Narrative - Reported Note Date & Type Note Facility History general Narrative - Reported Type Medical History GERD (gastroesophageal reflux di sease) Medical History Hypercholesteremia Surgical History salpingo-oophorectomy, left Mr. Number Other History general Narrative - Reported Note Date & Type Note Facility History general Narrative - Reported Type Medical History GERD (gastroesophageal reflux di sease) Medical History Hypercholesteremia Surgical History salpingo-oophorectomy, left Hospitalization History SEE SURGICAL HX Mr. Number Other Summary Purpose Family History Relationship Condition [...] DATE CREATED AUTHOR AUTHOR'S ORGANIZ ATION 11/29/2022 [facility] Care Teams (unrecognized sec tion and content) [...] BE BASED ON THE PRIMARY CLINICAL RECORDS. [employer] provides no warranty or guarantee of the accuracy or completeness of information in this document.
[2025-01-27 10:12] LABS: Hematocrit 40.5 % (36.0-48.0); Hemoglobin 13.2 g/dL (12.0-16.0); Immature Granulocytes Abs Auto 0.01 10^3/uL (0.00-0.03); Immature Granulocytes Pct Auto 0.2 % (0.0-0.5); Lymphocytes Absolute Auto 2.1 10^3/uL (1.2-3.8); Mean Corpuscular HGB Conc 32.6 g/dL (29.9-35.2); Mean Corpuscular Hemoglobin 28.8 pg (26.7-34.0); Mean Corpuscular Volume 88.2 fL (81.0-99.0); Platelet Count 292 10^3/uL (150-450); Red Blood Count 4.59 10^6/uL (4.20-5.40); White Blood Count 5.9 10^3/uL (4.0-11.0)
[2025-01-27 10:16] LABS: Alanine Aminotransferase 27 U/L (14-59); Albumin Level 3.4 g/dL (3.4-5.0); Alkaline Phosphatase 110 U/L (46-116); Anion Gap 12.7; Aspartate Amino Transferase 22 U/L (15-37); Blood Urea Nitrogen 11.0 mg/dL (7.0-18.0); Calcium 9.3 mg/dL (8.5-10.1); Carbon Dioxide 27.1 mmol/L (21.0-32.0); Chloride 104 mmol/L (98-107); Estimated GFR (African America >60 (>=60 mL/min/1.73m^2); Estimated GFR (Non-African Ame >60 (>=60 mL/min/1.73m^2); Glucose 103 mg/dL (74-106); Potassium 3.8 mmol/L (3.5-5.1); Sodium 140 mmol/L (136-145); Total Protein 7.6 g/dL (6.4-8.2)
[2025-01-27 10:17] LABS: Albumin Globulin Ratio 0.8; Cholesterol 206 mg/dL (<=200); Globulin 4.2 g/dL; HDL Cholesterol 66 mg/dL (40-60); Triglycerides 203 mg/dL (<=150); VLDL CHOLESTEROL 40.6 mg/dL
== END 2025-01-27 09:30 | disposition home or self-care (01) ==
PROVIDERS: PCP Family Medicine; Visit Provider Family Medicine
DX: Z00.00 Encounter for general adult medical examination without abnormal findings (principal); E78.00 Pure hypercholesterolemia, unspecified
CPT/HCPCS: 36415; 80053; 80061; 85025

== ENCOUNTER 2025-02-08 12:58 | Outpatient (OUT) | payer MEDICARE, SELFPAY ==
--- OUTSIDE RECORDS SUMMARY | 2025-02-06 09:55 | XMS_ITS | Continuity of Care Document ---
Author Organization [facility] Address [address] [place] [address] Phone Care Team Providers Care Wood Window And Door Craftsman Name Role Phone Joann Green MD Primary Care Provider Joann Green MD Attending Provider Care Teams Patient Care Team Team Status: Active Member Role/Relationship Status Dates Joann Green MD Primary Care Provider Active Patient Care Team Team Status: Active Member Role/Relationship Status Dates Joann Green MD Primary Care Provider Active Start: January 27, 2025 Bee Reyes ProviderActiveStart: January 27, 2025 Patient Care Team Team Status: Inactive Member Role/Relationship Status Dates Joann Green MD Primary Care Provider Active Start: February 06, 2025 End: February 06, 2025Bee Reyes ProviderActiveStart: February 06, 2025 End: February 06, 2025 Chief Complaint and Reason for Visit Chief Complaint Admit Date Wellness February 06, 2025 1 :04pm Allergies, Adverse Reactions, Alerts Allergen Type Severity Reaction Last Updated Verified Status Comments penicillin G benzathine Allergy Unknown Hives February 06, 2025 1:09pm Yes Active penicillin VAllergyUnknownrashOctober 2024 1:09pmYesActiveContrast Media Ready-Box *MEDIAllergyUnknownComment:CT DYEOctober 2022 1:05pmNoActiveFree Text Allergy: Contrast Media Ready-Box *MEDICAL DEVICES AND SUPP Social History Smoking Status Status Start Date End Date Date of Observa tion Never smoked tobacco (finding) February 05, 2024 11:15am Observation Status Observation Response Date of Response Legal Sex Female (finding) [facility] 1950 Family History Relationship Condition Age at Onset Recorded Date/T vishal brother Malignant neoplasm Unknown HypertensionUnknownfatherDeceasedUnknownHypertensionUnknownHistory of stroke UnknownmotherDeceasedUnknownHistory of strokeUnknownHypertensionUnknown Problems Active Problems Problem Diagnosis/Recorded Date Onset Date Stat us Medicare annual wellness vis it, subsequent February 06, 2024 7:22am Unknown Active Hypercholesteremia July 01, 2023 10:41am Unknown Active GERD (gastroesophageal reflux disease) June 30 10:41am Unknown Active Medications Medication Status Dose Units Route Directions Qty Days Refills S tart Date Stop Date End Date Reason(s) Instructions Adherence Atorvastatin 20 mg tablet Discontinued 20 MG PO D aily 90 3M2023 9:15amOctober 2023 11:32amFreeTextSi tablet Orally Once a day; Note: Source Status: Refill; Refills: 0; Provider: Norma Deluca Omeprazole 20 mg capsule,delayed release(DR/EC)Nwybrhbzognk93TXKAGjubh745Avjus 2023 9:15amOctober 2023 11:14amFreeTextSi capsule Orally Once a day; Note: Source Status: Refill; Refills: 0; Provider: Norma David EOmeprazole 20 mg capsule,delayed release(DR/EC)Pfeauobdvqcw7PZGCOIagtuYyrag 2023 12:00amMarch 2023 9:15amFreeTextSi capsule Orally Once a day; Note: Source Status: Refill; Refills: 0; Provider: Norma David ENaproxen Sodium 550 mg sblbmyJrpwtmiqvnlw9RCQIFWjbdf [facility] 2023 12:00amOctober 2023 11:30amFreeTextSi tablet Orally Twice a day; Note: Source Status: Not- Taking\PRN; Qty: 20 Tablet; Provider: Jono StepdelaneyieAtorvastatin 20 mg tablet Ssvlvxzpowls6MQOLVIfuqeDdqrv 2023 12:00amMarch 2023 9:15am FreeTextSi tablet Orally Once a day; Note: Source Status: Refill; Refills: 0; Provider: Green Joann EAtorvastatin 10 mg qgqhzgOrersgkdapfx30NLPWMntet498 February 05, 2024 11:31amOctober 2024 1:40pmLoratadine (Claritin) 10 mg zbkbevScascw95NOELAfavfQlihhwz 2023 12:00amComplies with drug therapy Atorvastatin 20 mg ppmtxnYomvsf50CTJGMwxtd675Bkmsibx 2024 1:39pmComplies with drug therapy Immunizations Immunization Event Date Not Given Reason Dose Number [employer] Lot Number Reason(s) Given Vaccine Information Statement (VIS) Detail Administration Location Pfizer/Corduro, Pediatric Age 5-11 January COVID-19 mRNA, Comirnaty (Pfizer)January 31OVID-19 mRNA, Comirnaty (Pfizer)October 29, 2021influenza, unspecified formulationAugust 2016 influenza, unspecified formulationSeptember 2019influenza, unspecified formulationSeptember 2020influenza, unspecified formulationOctober neumococcal Conjugate Vaccine, 13 valentSeptember 2015Pneumococcal Polysacc. Vaccine, 23 valentAugust 2016Shingles (Zoster)April 29, 2019 Relevant Diagnostic Tests and/or Laboratory Data Laboratory Results Test Collection Date/Time Result Date/Time Result Interpretation Reference Range Result Comment Performing Site Cholesterol/HDL Ratio January 27, 2025 9:40am January 272024 9:40am 3.1 3.3 - 4.4 LOW RISK4.4 - 7.1 AVERAGE RISK7.1 - 11.0 MODERATE RISK>11.0 HIGH RISK Anion [facility] 2024 9:40am[facility] 2024 9:40am12.7Basophils # (Auto)January 27, 2025 9:40amOctuofl [facility] 2024 9:40am0.0 10 3/uL0.0-0.1 Cholesterol [facility]Va [facility] 20[facility] 9:40amOctu[facility] 2024 9:16vh709 mg/dL Above high normal<=200Albumin/Globulin RatioOctuofl [facility] - [facility] 2024 9:40amOctuofl health - [facility] 2024 9:40am0.8Basophils (%) (Auto)January 27, 2025 9:40amOctober 2024 9:40am0.7 %0.2-2.0HDL CholesterolOctober 2024 9:40amOctober 2024 9:40am66 mg/dLAbove high onjvjy56-70> or =60 mg/dl - LOW CARDIOVASCULAR RISK<40 mg/dl - HIGH CARDIOVASCULAR RISKAlbuminOct2024 9:40amOctober 2024 9:40am3.4 g/dL3.4-5.0Eosinophils # (Auto)January 27, 2025 9:40am January 27, 2025 9:40am0.1 10 3/uL0.0-0.7LDL Cholesterol, CalculatedOctober 2024 9:40amOctober 2024 9:19gk444.0 mg/dL<100 mg/dl UOQQVFM966-175 mg/dl NEAR OR ABOVE WAAWVXJ817-836 mg/dl BORDERLINE CTWP449-427 mg/dl HIGH>190 mg/dl VERY HIGHAlkaline PhosphataseOctober 2024 9:40amOctober 2024 9:23gp007 U/A01-714Qgrfnxfpwjn (%) (Auto)January 27, 2025 9:40amOctober 2024 9:40am1.9 %0.9-7.0Triglycerides LevelOctober 2024 9:40amOctober 2024 9:88ly287 mg/dLAbove high normal<=150Alanine Aminotransferase (ALT/SGPT) January 27, 2025 9:40amOctober 2024 9:40am27 U/H73-81QhsgwvordkMrgekbz 2024 9:40amOctober 2024 9:40am40.5 %36.0-48.0VLDL CholesterolOctober 2024 9:40amOctober 2024 9:40am40.6 mg/dLAspartate Amino Transf (AST/SGOT)January 27, 2025 9:40amOctober 2024 9:40am22 U/L15-37 HemoglobinOctuofl health - medical center [facility] 2024 9:40amOctober 2024 9:40am13.2 g/dL12.0-16.0 BUN/Creatinine RatioOct2024 9:40amOctober 2024 9:40am15.5 Immature Granulocyte # (Auto)January 27, 2025 9:40amOctober 2024 9:40am 0.01 10 3/uL0.00-0.03Blood Urea NitrogenOctober 2024 9:40amOctober 2024 9:40am11.0 mg/dL7.0-18.0Immature Granulocyte % (Auto)January 27, 2025 9:40amOctober 2024 9:40am0.2 %0.0-0.5Calcium LevelOctober 2024 9:40amOctober 2024 9:40am9.3 mg/dL8.5-10.1Lymphocytes # (Auto)January 27, 2025 9:40amOctober 2024 9:40am2.1 10 3/uL1.2-3.8Chloride Level January 27, 2025 9:40amOctober 2024 9:39kx284 mmol/S99-794Rbqmwhbgodg (%) (Auto)January 27, 2025 9:40amOctober 2024 9:40am35.7 %20.5-60.0 Carbon Dioxide LevelOctober 2024 9:40amOctober 2024 9:40am27.1 mmol/L21.0-32.0Mean Corpuscular HemoglobinOctober 2024 9:40amOctober 2024 9:40am28.8 pg26.7-34.0CreatinineOct2024 9:40amOctober 2024 9:40am0.71 mg/dL0.55-1.02Mean Corpuscular Hemoglobin ConcentOctober 2024 9:40amOctober 2024 9:40am32.6 g/dL29.9-35.2Estimated GFR ()January 27, 2025 9:40amOctober 2024 9:40am>60>=60 mL/min/1.73m 2Mean Corpuscular VolumeOctober 2024 9:40amOctober 2024 9:40am88.2 fL81.0-99.0Estimated GFR (Non- AmericanOct2024 9:40amOctober 2024 9:40am>60>=60 mL/min/1.73m 2Monocytes # (Auto)January 27, 2025 9:40amOctober 2024 9:40am0.5 10 3/uL0.3-0.8GlobulinOctober 2024 9:40amOctober 2024 9:40am4.2 g/dLMonocytes (%) (Auto)January 27, 2025 9:40amOctober 2024 9:40am8.5 %1.7-12.0Glucose LevelOctober 2024 9:40amOctober 2024 9:33oz222 mg/yR84-125Drje Platelet VolumeOctober 2024 9:40amOctober 2024 9:40am10.6 fL9.5-13.5Potassium LevelOctober 2024 9:40amOctober 2024 9:40am3.8 mmol/L3.5-5.1Neutrophils # (Auto)January 27, 2025 9:40amOctober 2024 9:40am3.1 10 3/uL1.4-6.5Sodium LevelOctober 2024 9:40amOctober 2024 9:94zu697 mmol/C905-199Mzhoobvykwn (%) (Auto)January 27, 2025 9:40amOctober 2024 9:40am53.0 %43.0-75.0Total BilirubinOctober 2024 9:40amOctober 2024 9:40am0.3 mg/dL0.2-1.0 Platelet CountOctober 2024 9:40amOctuofl health - medical center [facility] 2024 9:23mr215 10 3/uL 150-450Total ProteinOctuofl health - medical center south 2024 9:40amOctober 2024 9:40am7.6 g/dL 6.4-8.2Red Blood CountOctuofl health - medical center south 2024 9:40amOctober 2024 9:40am4.59 10 6/uL4.20-5.40Red Cell Distribution WidthOctuofl health - medical center south 2024 9:40amOctober 2024 9:40am13.6 %11.0-15.0Corrected White Blood CountOctuofl health - medical center south 2024 9:40am January 27, 2025 9:40am5.9 10 3/uL4.0-11.0 Vital Signs Vital Reading Result Reference Range Collection Date/Time Height 58 [in_i] February 06, 2025 1:20xqCorxqe71.83 kgOctuofl health - medical center [facility] 2024 1:08pmHeart Zekl330 /jvv21-908Smuwana 2024 1:08pmBP Wgsnmoio232 mm[Hg]100-140Oct[facility] 2024 1:50pmBP Yvuxvpdee30 mm[Hg]60-100Oct[facility]ofl [facility] 2024 1:50pmBMI (Body Mass Index)26.6 kg/j1Xotumth 2024 1:08pm Advance Directives Advance Directive Response Recorded Date/ Time Advance Directives No January 29, 2024 11:35am Insurance Providers Guarantor Kisha Carey Address [address] [place] [address]Nwjmjof Info.Home Phone: Payer Group Member ID Coverage Type Subscriber Relationship to Subscriber Effective Date Expiration Date Medicare [id number] Berenbaum Id: [id number] [address] [place] [address] Home Phone: [facility] [email or web address] Claims Id: Plan [id number] Berenbaum Id: [id number] [address] [place] [address] Home Phone: Self Encounters Encounter Location(s) Arrival/Admit Date Discharge/Departure Date Discharge/Departure Disposition Provider(s) Non-patient / Non-visit -[facility] O ctober 2024 9:40am Joann Green MDDeparted Physician/Provider [facility] 1:04pmOctober 2024 1:55pmDischarged to home care or self care (routine discharge)Joann Green MD
--- NOTE | 2025-02-08 13:00 | MM_ITS ---
Patient Name: PIERCE STRAUSS MR#: [id number] : 1950 Exam Date: 02/08/2025 Ordering Doctor: DR BRANDEE LEWIS M.D. RADIOLOGY REPORT PROCEDURE: MM TOMOSYNTHESIS SCREENING BI COMPARISON: MM TOMOSYNTHESIS SCREENING BI, 02/08/2024. MM TOMOSYNTHESIS SCREENING BI, 02/04/2023. MG MAMM SCREEN 3D KEVIN CAD, 02/03/2022. MG MAMM SCREEN KEVIN W CAD, 01/15/2013. INDICATIONS: Screening for malignant neoplasm Calculator Name NCI Breast Cancer Risk Assessment Tool 5 Year Breast Cancer Risk 2.30% Lifetime Breast Cancer Risk 5.30% Personal Breast Cancer No Personal Ovarian Cancer No Treatments None Family Cancers None LOCATION: [facility] BREAST COMPOSITION: The breasts are heterogeneously dense, which may obscure small masses. FINDINGS: RIGHT BREAST: No significant suspicious finding. LEFT BREAST: No significant suspicious finding. DIAGNOSTIC CATEGORY 1--NEGATIVE. RECOMMENDATIONS: ROUTINE MAMMOGRAM AND CLINICAL EVALUATION IN 12 MONTHS. Dictated by: Noel Baugh DO on 02/08/2025 at 15:04 Approved by: Noel Baugh DO on 02/08/2025 at 15:06
--- OUTSIDE RECORDS SUMMARY | 2025-02-08 13:01 | XMS_ITS | Clinical Summary ---
Author Organization [facility] tem Address [id number] [address] [place] [address] Care Team Providers Care Miniature Train Driver Name Role Phone Joann Green MD Primary Care Provider [phone] Allergies Active AllergyReactionsCriticalityNoted DateCommentsIodinated Contrast Media 06/21/20180848Lndkjjgntyh53/11/2019 Medications MedicationSigDispense QuantityRefillsLast FilledStart DateEnd DateStatus atorvastatin (LIPITOR) 20 mg tablet 04/24/2018Active sodium,potassium,mag sulfates (SUPREP BOWEL PREP KIT) 17.5-3.13-1.6 gram recon soln 177 ml,actual weight, 2 times daily, Oral 1 kit 06/21/2018Active omeprazole (PriLOSEC) 20 mg capsule Take 20 mg by mouth daily.Active Active Problems No known active problems Family History Medical HistoryRelationNameCommentsProstate cancerBrotherHypertensionFather HypertensionMaternal GrandfatherHypertensionMaternal GrandmotherHypertension MotherHypertensionPaternal GrandfatherHypertensionPaternal GrandmotherRelation NameStatusCommentsBrotherFatherMaternal GrandfatherMaternal GrandmotherMother Paternal GrandfatherPaternal Grandmother Social History Tobacco UseTypesPacks/DayYears UsedDateSmoking Tobacco: NeverSmokeless Tobacco: NeverAlcohol UseStandard Drinks/WeekCommentsYes0 (1 standard drink = 0.6 oz pure alcohol)SOCIALChildcareAnswerDate TxzyidwsRcquufiknMckarix93/06/2019Employment AnswerDate WwgynaqvBayscmrxiaBegkbqt91/06/2019Purpose - LifeAnswerDate Recorded Purpose and direction in jbghVfweutg12/11/2021CommentsUnknownSex and Gender InformationValueDate RecordedSex Assigned at BirthNot on fileLegal Sex Bprroz5106/15/2018 2:21 PM ESTGender IdentityNot on fileSexual OrientationNot on file Last Filed Vital Signs Vital SignReadingTime TakenCommentsBlood Iqahefwz294/76007/20/2018 2:40 PM EDT Pulse--Temperature--Respiratory Rate--Oxygen Saturation--Inhaled Oxygen Concentration--Ibykah12.1 kg (128 lb)07/20/2018 2:40 PM MADWtiiky110.4 cm (5') 07/20/2018 2:40 PM EDTBody Mass Bwxbq0280/09/2019 2:40 PM EDT Plan of Treatment Health MaintenanceDue DateLast DoneCommentsDepression Xpavvcfeo56/09/1963Tobacco Ywdkgjdyo91/09/1963Adult BMI Yugkyaawo15/09/1969DTaP,Tdap and Td Vaccines (1 - Tdap)1969Zoster (Shingles) Vaccine (1 of 2)2000Fall Risk Screening 06/20/2015Influenza Fbhmbdg41/01/8971Pprqxuoadhn33 Medical Devices Not on file Insurance Care Teams Team MemberRelationshipSpecialtyStart DateEnd Date Joann Green MD [address] [place] [address] PCP - General06/15/18
--- OUTSIDE RECORDS SUMMARY | 2025-02-08 13:01 | XMS_ITS | Patient Health Record ---
Author Organization [facility] Address [address] [place] [phone] Care Team Providers Care Outsole Splicer Name Role Phone ChristinaTodg Primary Care Provider Allergies Allergen (clinical drug ingredient) Drug/Non Drug Allergy documented on EMR Reaction Allergy Type Onset Date Status PenicillinrashDrug AllergyActive Reason For Referral No Information Medications Medication SIG (Take, Route, Frequency, Duration) Notes Start Date End Date Status Atorvastatin Calcium 20 mg 1 tablet Orally Once a day; Duration: 90 days 02/21/2013ctive Immunizations Vaccine Route Administration Date Status Comme nts Td adult Unknown 04/13/2004 Administered Q6U3Adyoxlf09/01/2009dministeredzzFLU DwrwopvTnvdgda35/01/2011Administered Zostavax - DO NOT USESC Wezldhwpqoqt92/21/2012dministeredxFluzone Quadrivalent 4972Ybijasb74/15/2015Administered Problems Problem Type SNOMED Code ICD Code Onset Dates Problem Status W/U Status Risk Notes Problem Vitamin D deficiency (06328570) Vitamin D deficiency (E55.9) ActiveconfirmedProblemAtrophic vaginitis (19723395)Atrophic vaginitis (N95.2) ActiveconfirmedProblemImpaired fasting glucose (172835607)Impaired fasting glucose (R73.01)ActiveconfirmedProblemMixed hyperlipidemia (550840888)Mixed hyperlipidemia (E78.2)ActiveconfirmedProblemHyperlipidemia (11304213)Other and unspecified hyperlipidemia (E78.5)ActiveconfirmedProblemHistory of malignant basal cell tumor of skin (756784636)History of basal cell carcinoma (Z85.828) ActiveconfirmedProblemOsteoarthrosis (408128534)Osteoarthrosis (M19.90)Active confirmedProblemHistory of peptic ulcer (105738927)History of peptic ulcer disease (Z87.11)Activeconfirmed Plan Of Treatment No Information Insurance Providers Payer Name Payer Address Payer Phone Subscriber Number Group Number Insured Name Patient Relationship to Insured Coverage Start Date Coverage End Date Medicare [place] [address] [place], [place] [id number] Loc Carey - patient is the insuredAARP supplement planPO [address] [place], [place] [id number], AnnSelf - patient is the insured Medical (General) History Medical History History ICD Code hyperlipidemia LDL 153 04/24, 154 08/22 LD L 184 TG 167 02/23; LDL 91 03/25 ASCVD risk 4.4 03/26 on statinimpaired fasting glucose (04/24) FSG 88, HbA1c 5.9 (02/23) FSG 88 A1c 6.0; (03/26) 6.1PUD (NSAID induces and H pylori)OA knees atrophic vaginitish/o blood transfusionvitreous detachmentHAS NOT HAD COLO has been reluctant FOBT neg 02/23vitamin D deficiency 19.5 04/24 19.4 02/23BCC 02/23 (Jason)supplements: Vit D MVISurgical History Surgery Date(Month/Year) L salpingoophorectomy (endometriosis) Hospitalization History Reason Date(Month/Year)
--- OUTSIDE RECORDS SUMMARY | 2025-02-08 13:01 | XMS_ITS | Clinical Summary ---
Author Organization [facility] Address [address] [place] [address] Care Team Providers Care Superintendent Landfill Operations Name Role Phone Unavailable Primary Care Provider Unavailabl e Social History Tobacco UseTypesPacks/DayYears UsedDateSmoking Tobacco: Never Assessed CommentsUnknownSex and Gender InformationValueDate RecordedSex Assigned at Not on fileLegal XcvJbsrew10/15/2023 11:01 PM EDTGender IdentityNot on file Sexual OrientationNot on file Last Filed Vital Signs Vital SignReadingTime TakenCommentsBlood Pressure--Pulse--Temperature-- Respiratory Rate--Oxygen Saturation--Inhaled Oxygen Concentration--Gitqod91 kg (130 lb)12/27/2019 12:00 PM RXQVaeefq659.4 cm (5')12/27/2019 12:00 PM EDTBody Mass Index25.39012/27/2019 12:00 PM EDT Plan of Treatment Not on file Insurance
--- OUTSIDE RECORDS SUMMARY | 2025-02-08 13:11 | XMS_ITS | CCD ---
Author Organization [facility] Care Team Providers Care Attorney Recruiter Name Role Phone DR JOANN LEWIS Primary Care Unavailable WEST, DR RICKIE Sweeney Consulting Unavailable JOSHUA, DR JOANN Deluca Admitting Unavailable JOSHUA, DR JOANN Deluca Attending Unavailable JOSHUA, DR JOANN Deluca Consulting Unavailable JOSHUA, DR JOANN Deluca Primary Care Unavailable JOSHUA, DR JOANN Deluca Admitting Unavailable JOSHUA, DR JOANN Deluca Attending Unavailable JOSHUA, DR JOANN Deluca Consulting Unavailable DANYA Zeng Attending Provider Fabby Zeng Unavailable Joann Lewis Primary Care Unavailable Fabby Zeng Attending Unavailable Fabby Zneg Admitting Unavailable Joann Lewis Unavailable Allergies Allergy ClassificationReported Allergen(s)Allergy TypeDate of OnsetReaction(s) Facility (1 source)Iodine (And Iodine Containting Drugs)Drug allergy (disorder)[facility] Repository (1 source)PenicillinDrug AllergyThe [facility] (4 sources)Penicillin VDrug Wgpbsac13-89-9002yxifJgvglwycnKet[facility] (3 sources)Cont[employer] Ready-Box *MEDICAL DEVICES AND SUPPPropensity to adverse reactionsComment:CT Li Creative TechnologiesVA hospital [employer] Other (3 sources)Penicillin G Benzathine & ProcDrug allergyUnknoHorton Medical Center [employer] Other (1 source)Penicillin G BenzathineAllergy to ltogzgemk28-51-7932YjelnMxmnqorjdFort [facility] Hospital (1 source)[employer] *MEDIAllergy to aznjyssil50-47-2701Pgraodu:[facility] Medications Current Medications MedicationDrug Class(es)DatesSig (Normalized)Sig (Original)atorvastatin 10 mg oral tablet (9 sources)HMG-CoA Reductase InhibitorStart: 30-09-1834hvqu 10 mg by mouth once dailyAtorvastatin Active 10 MG PO Daily February 05, 2024 11:31amStart: 07-01-2023 End: 96-62-2131nbjd 1 tablet by mouth once dailyAtorvastatin Discontinued 20 MG PO Daily July 02, 2023 9:15am February 05, 2024 11:32am FreeTextSi tablet Orally Once a day; Note: Source Status: Refill; Refills: 0; Provider: Joshua Rodgers: 55-85-2405yhjx 1 tablet by mouth once dailyatorvastatin 20mg atorvastatin 20mg, 1 (one) Tablet daily # 0, 01/16/2022, No Refill. Active oral daily for 0 *Reorder from Rexly for eRx and Interaction Alerts* Jan, Not-Taking Completed/Discontinued Medications MedicationDrug Class(es)DatesSig (Normalized)Sig (Original)Aircast Sport Ankle Brace/Left - (3 sources)Start: 01-83-3880Rpohtrr Sport Ankle Brace/Left - as directed Dec, Not-Takingnaproxen sodium 550 mg oral tablet (4 sources)Nonsteroidal Anti-inflammatory DrugStart: 07-01-2023 End: 08-16-9189ibql 1 tablet by mouth twice dailyNaproxen Sodium Discontinued 1 TAB PO Twice daily July 01, 2023 12:00am February 05, 2024 11:30am FreeTextSi tablet Orally Twice a day; Note: Source Status: Not-Taking\PRN; Qty: 20 Tablet; Provider: Jono Mosley: 56-88-8632rzhq 1 tablet by mouth every twelve hoursAnaprox DS 550 MG 1 tablet Orally Twice a day for 10 days Dec, Not-Takingomeprazole 20 mg delayed release oral capsule (8 sources)Proton Pump InhibitorStart: 07-01-2023 End: 21-56-4958siwh 1 capsule by mouth once dailyOmeprazole Discontinued 20 MG PO Daily July 02, 2023 9:15am February 05, 2024 11:14am FreeTextSi capsule Orally Once a day; Note: Source Status: Refill; Refills: 0; Provider: Joshua Wen: 94-59-3909rrna 1 capsule by mouth once dailyOmeprazole 20mg omeprazole 20mg, 1 (one) Capsule daily # 0, 02/27/2022, No Refill. Active oral daily for 0 *Pick strength-form from Rexly for eRX* Feb, Not-Taking take 1 capsule by mouth every twenty-four hoursOmeprazole 20 MG 1 capsule Orally Once a day for 90 days Active Problems Active Problems Problem ClassificationProblemDateDocumented DateEpisodic/ChronicAbdominal pain (5 sources)Right upper quadrant pain; Translations: [Right upper quadrant pain] Onset: 18-51-5710HudgukvoLphszackk of lipid metabolism (8 sources)Hyperlipidemia, unspecified; Translations: [Hyperlipidemia]Onset: 49-92-0435TvllwwqUypthukqhd disorders (7 sources)Esophageal reflux finding; Translations: [Esophageal reflux]Onset: 62-97-0176UwsogdcJslblxnzjurjk symptoms and ill-defined conditions (1 source)Dysuria; Translations: [Dysuria]Onset: 42-01-2690UgmwfvofScirb injuries and conditions due to external causes (2 sources)History of fall; Translations: [History of falling]EpisodicOther nutritional; endocrine; and metabolic disorders (2 sources)Body mass index 25-29 - overweight; Translations: [Body mass index (BMI) 26.0-26.9, adult]EpisodicOther nutritional; endocrine; and metabolic disorders (2 sources)Overweight; Translations: [Overweight]EpisodicOther screening for suspected conditions (not mental disorders or infectious disease) (5 sources)Encounter for screening mammogram for malignant neoplasm of breast; Translations: [ENC SCR MAMMO MALIG NEOPLASM BREAST]Onset: 27-94-1946Owgazvmb Other upper respiratory disease (2 sources)Seasonal allergic rhinitis; Translations: [Other seasonal allergic rhinitis]Onset: 66-08-5907Krqgmpl Past or Other Problems Problem ClassificationProblemDateDocumented DateEpisodic/ChronicAcute bronchitis (2 sources)Acute bronchitis; Translations: [Acute bronchitis, unspecified]Onset: 12-69-7661QnbmesfiSmjayfeuzwrxa and screening for infectious disease (2 sources)Vaccination given; Translations: [Encounter for immunization]Onset: 85-38-6995EukdepbxIxzrk disorders of stomach and duodenum (2 sources)Nonulcer dyspepsia; 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]Onset: 33-33-0065IejhakbmViiyplkf codes; unclassified (2 sources)Requires influenza virus vaccination; Translations: [Need for prophylactic vaccination and inoculation, Influenza]Onset: 23-68-7305Ktsqzpnj Results Test NameValueInterpretationReference RangeFacilityBasophils Auto (Bld) [#/Vol] on 13-69-6834Awglkibsv (Bld) [#/Vol]0.1 10 3/uL0.0-0.1FUniversity Hospitals Cleveland Medical CenterBasophils/100 WBC Auto (Bld)on 89-49-0071Auzszyuxm/100 WBC (Bld)0.9 % 0.2-2.0[facility] HospitalCholesterol in LDL Calc [Mass/Vol]on 33-62-4890Lgficlxfffz in LDL [Mass/Vol]58.0 mg/dLThe [facility] HospitalComment on above:<100 mg/dl TMUHOXQ310-513 mg/dl NEAR OR ABOVE HPOYRHF591- 159 mg/dl BORDERLINE PSNM147-344 mg/dl HIGH>190 mg/dl VERY HIGHCholesterol in VLDL Calc [Mass/Vol]on 34-11-8357Hmrwuhmedim in VLDL [Mass/Vol]30.6 mg/dL [facility] HospitalEosinophils/100 WBC Auto (Bld)on 02-04-2024 Eosinophils/100 WBC (Bld)2.0 %0.9-7.0[facility] Erythrocyte distribution width Auto (RBC) [Ratio]on 83-01-5053Alpgdnbxqmk distribution width (RBC) [Ratio]14.0 %11.0-15.0[facility] Estimated glomerular filtration rate (GFR) non- Americanon 02-04-2024 GFR/1.73 sq M.predicted among non-blacks MDRD (S/P/Bld) [Vol rate/Area] mL/min/{1.73_m2}>=60 mL/min/1.73m 2FUniversity Hospitals Cleveland Medical CenterGlobulin Calc (S) [Mass/Vol]on 29-77-5219Uomfvvtl (S) [Mass/Vol]3.7 g/dLThe [facility]vue HospitalHematocrit Auto (Bld) [Volume fraction]on 02-04-2024 Hematocrit (Bld) [Volume fraction]36.8 %36.0-48.0[facility] HospitalHemoglobin [Mass/volume] in Bloodon 94-29-4887Eaojlkoqyg (Bld) [Mass/Vol] 12.1 g/dL12.0-16.0The [facility] HospitalLaboratory - Chemistry and Chemistry - challengeon 72-25-5302Nifdcfv [Mass/Vol]3.2 g/dLLow3.4-5.0[facility] HospitalALP [Catalytic activity/Vol]98 U/A34-760YzaprgvylThe [facility] HospitalALT [Catalytic activity/Vol]17 U/M50-30TrscrnexwThe [facility] HospitalAST [Catalytic activity/Vol]18 U/W68-05LjgbyovyxThe [facility] HospitalBilirubin [Mass/Vol]0.5 mg/dL0.2-1.0[facility] Calcium [Mass/Vol]9.3 mg/dL8.5-10.1FUniversity Hospitals Cleveland Medical CenterChloride [Moles/Vol]105 mmol/N61-920JaqbuxrjnThe [facility] HospitalCholesterol [Mass/Vol]153 mg/dL<=200The [facility] HospitalCholesterol in HDL [Mass/Vol]65 mg/kGAhrm54-80SwkplevoyThe Bellevue HospitalComment on above:> or =60 mg/dl - LOW CARDIOVASCULAR RISK<40 mg/dl - HIGH CARDIOVASCULAR RISKCO2 [Moles/Vol]26.5 mmol/L21.0-32.0[facility] HospitalCreatinine [Mass/Vol]0.91 mg/dL0.55-1.02The [facility] HospitalGFR/1.73 sq M.predicted MDRD (S/P/Bld) [Vol rate/Area]mL/min/{1.73_m2}>=60 mL/min/1.73m 2 The [facility] HospitalGlucose [Mass/Vol]103 mg/pP14-649UwgshhlpzThe [facility]vue HospitalPotassium [Moles/Vol]4.1 mmol/L3.5-5.1FUniversity Hospitals Cleveland Medical CenterProtein [Mass/Vol]6.9 g/dL6.4-8.2FUniversity Hospitals Cleveland Medical Center Sodium [Moles/Vol]142 mmol/K077-488InkvivuxiThe [facility]vue HospitalTriglyceride [Mass/Vol]153 mg/dLHigh<=150The [facility] HospitalUrea nitrogen [Mass/Vol]10.0 mg/dL7.0-18.0The [facility] HospitalUrea nitrogen/Creatinine [Mass ratio]11.0 mg/mgThe [facility] Laboratory - Hematology and Cell countson 25-55-2448Pahqwfhy granulocytes/100 WBC (Bld)0.2 %0.0-0.5FUniversity Hospitals Cleveland Medical CenterLeukocytes [#/volume] corrected for nucleated erythrocytes in Blood by Automated counon 67-65-0927XCS corrected for nucl RBC Auto (Bld) [#/Vol]5.6 10 3/uL4.0-11.0The [facility] HospitalLymphocytes Auto (Bld) [#/Vol]on 81-67-1706Pfubnvyuprg (Bld) [#/Vol]1.9 10 3/uL1.2-3.8The [facility] HospitalLymphocytes/100 WBC Auto (Bld)on 09-66-0085Xylflcruesd/100 WBC (Bld)34.8 %20.5-60.0[facility] HospitalH Auto (RBC) [Entitic mass]on 92-84-4884BAB (RBC) [Entitic mass]28.6 pg26.7-34.0The [facility] HospitalMCHC Auto (RBC) [Mass/Vol]on 14-07-6923NWVK (RBC) [Mass/Vol]32.9 g/dL29.9-35.2FUniversity Hospitals Cleveland Medical CenterMCV Auto (RBC) [Entitic vol]on 52-01-2243MHD (RBC) [Entitic vol] 87.0 fL81.0-99.0[facility] HospitalMonocytes Auto (Bld) [#/Vol]on 63-91-8291Ylefdwhty (Bld) [#/Vol]0.5 10 3/uL0.3-0.8The [facility] HospitalMonocytes/100 WBC Auto (Bld)on 89-54-9262Ixqbulirq/100 WBC (Bld)8.6 % 1.7-12.0The [facility] HospitalNeutrophils Auto (Bld) [#/Vol]on 80-09-4776Ntkxmeaxlmj (Bld) [#/Vol]3.0 10 3/uL1.4-6.5FUniversity Hospitals Cleveland Medical CenterNeutrophils/100 WBC Auto (Bld)on 66-69-4048Ddntmazmurv/100 WBC (Bld)53.5 % 43.0-75.0[facility] HospitalNo Panel Informationon 02-04-2024 Eosinophils # (Auto)0.1 10 3/uL0.0-0.7FUniversity Hospitals Cleveland Medical CenterImmature Granulocyte # (Auto)0.01 10 3/uL0.00-0.03[facility] Platelet mean volume Auto (Bld) [Entitic vol]on 32-34-5623Gseisojc mean volume (Bld) [Entitic vol]10.4 fL9.5-13.5FUniversity Hospitals Cleveland Medical CenterPlatelets Auto (Bld) [#/Vol]on 01-40-8722Kwoexisyu (Bld) [#/Vol]306 10 3/cT943-864 [facility] HospitalRBC Auto (Bld) [#/Vol]on 91-09-1790KYX (Bld) [#/Vol]4.23 10 6/uL4.20-5.40Flower Hospitalerum or plasma albumin/globulin mass ratioon 19-44-0155Zlxamac/Globulin [Mass ratio]0.9 {ratio} Flower Hospitalerum or plasma anion gap determinationon 91-99-8373Ctxwy gap [Moles/Vol]14.6 mmol/LFSelect Medical Cleveland Clinic Rehabilitation Hospital, Avonerum or plasma total cholesterol/high density lipoprotein (HDL) cholesterol mass rat on 30-85-9595Vfoclgrhcna.total/Cholesterol in HDL [Mass ratio]2.4 {ratio} The [facility] HospitalComment on above:3.3 - 4.4 LOW RISK4.4 - 7.1 AVERAGE RISK7.1 - 11.0 MODERATE RISK>11.0 HIGH RISKUrine Cultureon 11-23-2022 Bacteria identified Cx Nom (U)Reason for Exam Dysuria Urine <9,000 colonies/ml mixed bacterial skin contaminants 2 Days PERFORMED BY: [facility] [address] [id number] PATHOLOGIST OFFICE ANALYST NINOSKA CUI M.D.[facility] Memorial HospitalComment on above: Performed By: #### CUU #### [facility] [address] [id number] USAMG MAMM SCREEN 3D KEVIN CADon 59-60-7163EL MAMM SCREEN 3D KEVIN CADPatient: PIERCE CAREY Exam Date: 02/03/2022 : 1950 Gender:F Ordering : DR JOANN LEWIS M.D. Admission #: [id number] Family : Order #: [id number] CLICK HERE TO VIEW EXAM RADIOLOGY REPORT [...] Treatments None Family Cancers None LOCATION: [facility] BREAST COMPOSITION: Heterogeneously dense,which may [...] by: Rickie Escobar MD on 02/03/2022 at 14:28[facility] AUTO DIFFon 85-27-9574WQLC #0.0 103/ulNormal0.0-0.1[facility] HospitalComment on above:Performed By: #### CBC #### [facility] [address] [address] [address] Giovanni Macsophils/100 WBC (Bld)0.8 %Normal0.2-2.0[facility] Comment on above:Performed By: #### CBC #### [facility] [address] [place] [address] Dr. Giovanni Cruz #0.1 103/ulNormal0.0-0.7The [facility] HospitalComment on above: Performed By: #### CBC #### [facility] [address] [place] [address] Dr. Giovanni Prattosinophils/100 WBC (Bld)1.9 %Normal0.9-7.0[facility] Comment on above:Performed By: #### CBC #### [facility] [address] [place] [address] Dr. Giovanni Prattrythrocyte distribution width (RBC) [Ratio]14.0 %Ehqujf45.0-15.0 [facility] HospitalComment on above:Performed By: #### CBC #### [facility] [address] [place] [address] Dr. Giovanni StewartHematocrit (Bld) [Volume fraction]38.7 %Nomflo76.0-48.0[facility] HospitalComment on above:Performed By: #### CBC #### [facility] [address] [place] [address] Dr. Giovanni StewartHemoglobin (Bld) [Mass/Vol]12.4 g/kCOzwqzj76.0-16.0[facility] HospitalComment on above:Performed By: #### CBC #### [facility] [address] [place] [address] Dr. Giovanni Lambert #0.01 10e3/ulNormal0.00-0.03The [facility] HospitalComment on above:Performed By: #### CBC #### [facility] [address] [place] [address] Dr. Giovanni Lambert %0.2 %Normal0.0-0.5The [facility] HospitalComment on above: Performed By: #### CBC #### [facility] [address] [place] [address] Dr. Giovanni Fontanez #2.0 103/ulNormal1.2-3.8The [facility] HospitalComment on above:Performed By: #### CBC #### [facility] [address] [place] [address] Dr. Giovanni Redhocytes/100 WBC (Bld)39.4 %Oupfgr07.5-60.0The [facility] HospitalComment on above:Performed By: #### CBC #### [facility] [address] [place] [address] Dr. Giovanni Sanches DIFF REQNONormalThe [facility] HospitalComment on above: Performed By: #### CBC #### [facility] [address] [place] [address] Dr. Giovanni Cornejo (RBC) [Entitic mass]28.3 pfFcbqtr14.7-34.0The [facility] HospitalComment on above:Performed By: #### CBC #### [facility] [address] [place] [address] Dr. Giovanni Aparicio (RBC) [Mass/Vol]32.0 g/gXCrudqb60.9-35.2The [facility] HospitalComment on above:Performed By: #### CBC #### [facility] [address] [place] [address] Dr. Giovanni Aparicio (RBC) [Entitic vol]88.4 rOMuexqh08.0-99.0The [facility] HospitalComment on above:Performed By: #### CBC #### [facility] [address] [place] [address] Dr. Giovanni Manzano #0.4 103/ulNormal0.3-0.8The [facility] HospitalComment on above:Performed By: #### CBC #### [facility] [address] [place] [address] Dr. Giovanni Bolañosocytes/100 WBC (Bld)7.6 %Normal1.7-12.0[facility] Comment on above:Performed By: #### CBC #### [facility] [address] [place] [address] Dr. Giovanni Fernández #2.6 103/ulNormal1.4-6.5The [facility] HospitalComment on above:Performed By: #### CBC #### [facility] [address] [place] [address] Dr. Giovanni Mariscalutrophils/100 WBC (Bld)50.1 %Ubwoun70.0-75.0The [facility] HospitalCombaraga county memorial hospital on above:Performed By: #### CBC #### [facility] [address] [place] [address] Dr. Giovanni StewartPlatelet mean volume (Bld) [Entitic vol]10.4 fLNormal9.5-13.5The [facility] HospitalCombaraga county memorial hospital on above:Performed By: #### CBC #### [facility] [address] [place] [address] Dr. Giovanni SmithT282 103/dnHuvswg198-325Agn [facility] HospitalCombaraga county memorial hospital on above: Performed By: #### CBC #### [facility] [address] [place] [address] Dr. Giovanni StewartRBC4.38 106/ulNormal4.20-5.40The [facility] HospitalCombaraga county memorial hospital on above:Performed By: #### CBC #### [facility] [address] [place] [address] Dr. Giovanni StewartWBC5.1 103/ulNormal4.0-11.0The [facility] HospitalCombaraga county memorial hospital on above: Performed By: #### CBC #### [facility] [address] [place] [address] Dr. Giovanni StewartLIPID PROFILEon 02-74-5992WCWY-HDL RATIO NORMSEE [facility] on above:Result Comment: 3.3 - 4.4 LOW RISK 4.4 - 7.1 AVERAGE RISK 7.1 - 11.0 MODERATE RISK >11.0 HIGH RISKPerformed By: #### LIPID, CMP #### [facility] [address] [place] [address] Dr. Giovanni StewartCholesterol [Mass/Vol]168 mg/dLNormal<=200The [facility] Comment on above:Performed By: #### LIPID, CMP #### [facility] [address] [address] [address] Giovanni StewartCholesterol in HDL [Mass/Vol]69 mg/dLCritically qbhq44-42GrmWexner Medical CenterComment on above:Performed By: #### LIPID, CMP #### [facility] [address] [address] [address] Giovanni Azaresterol in LDL [Mass/Vol]73.2 mg/dLOhioHealth Nelsonville Health CenterComment on above:Performed By: #### LIPID, CMP #### [facility] [address] [place] [address] Dr. Giovanni Strong.total/Cholesterol in HDL [Mass ratio]2.4 {ratio} NormalWexner Medical CenterComment on above:Performed By: #### LIPID, CMP #### [facility] [address] [place] [address] Dr. Giovanni Montgomery NORMAL> or = 60 mg/dl - LOW CARDIOVASCULAR RISK <40 mg/dl - HIGH CARDIOVASCULAR RISKOhioHealth Nelsonville Health CenterComment on above:Performed By: #### LIPID, CMP #### [facility] [address] [address] [address] Giovanni Baker CALC NORMALSEE BELOWOhioHealth Nelsonville Health CenterComment on above:Result Comment: <100 mg/dl OPTIMAL 100 - 129 mg/dl NEAR OR ABOVE OPTIMAL 130 - 159 mg/dl BORDERLINE HIGH 160 - 189 mg/dl HIGH >190 mg/dl VERY HIGH Performed By: #### LIPID, CMP #### [facility] [address] [place] [address] Dr. Giovanni StewartTriglyceride [Mass/Vol]129 mg/dLNormal<=150[facility] Comment on above:Performed By: #### LIPID, CMP #### [facility] [address] [place] [address] Dr. Giovanni AtkinsonLDL CALC25.8 mg/dLNoBluffton HospitalComment on above: Performed By: #### LIPID, CMP #### [facility] [address] [address] [address] Giovanni Graff 14(COMP METB)on 37-08-9065Xmvaoka [Mass/Vol]3.6 g/dLNormal 3.4-5.0The [facility] HospitalComment on above:Performed By: #### LIPID, CMP #### [facility] [address] [address] [address] Giovanni StewartAlbumin/Globulin [Mass ratio]1.0 {ratio}NormalThe [facility] HospitalComment on above:Performed By: #### LIPID, CMP #### [facility] [address] [address] [address] Giovanni Snow [Catalytic activity/Vol]88 U/XEhauko14-514Tni [facility] HospitalComment on above:Performed By: #### LIPID, CMP #### [facility] [address] [address] [address] Giovanni Phillips [Catalytic activity/Vol]20 U/MWgmrmp99-09Ciy [facility] HospitalComment on above:Performed By: #### LIPID, CMP #### [facility] [address] [address] [address] Giovanni Diggs gap [Moles/Vol]12.9 mmol/LNormalThe [facility] Comment on above:Performed By: #### LIPID, CMP #### [facility] [address] [address] [address] Giovanni Rutherford [Catalytic activity/Vol]20 U/UKfgtkx17-42Wvd [facility] HospitalComment on above:Performed By: #### LIPID, CMP #### [facility] [address] [address] [address] Giovanni StewartBilirubin [Mass/Vol]0.4 mg/dLNormal0.2-1.0[facility] Comment on above:Performed By: #### LIPID, CMP #### [facility] [address] [place] [address] Dr. Giovanni StewartCalcium [Mass/Vol]9.3 mg/dLNormal8.5-10.1The [facility] Comment on above:Performed By: #### LIPID, CMP #### [facility] [address] [address] [address] Giovanni StewartChloride [Moles/Vol]104 mmol/WNnxeyk76-850Stv [facility] Comment on above:Performed By: #### LIPID, CMP #### [facility] [address] [address] [address] Giovanni StewartCO2 [Moles/Vol]27.4 mmol/KZzdxbv37.0-32.0The [facility] Comment on above:Performed By: #### LIPID, CMP #### [facility] [address] [address] [address] Giovanni StewartCreatinine [Mass/Vol]0.79 mg/dLNormal0.55-1.02The [facility] HospitalComment on above:Performed By: #### LIPID, CMP #### [facility] [address] [address] [address] Giovanni PrattGFR-AF EQUATORIAL GUINEAN>60Normal>=60The [facility] HospitalComment on above:Performed By: #### LIPID, CMP #### [facility] [address] [address] [address] Giovanni Newberry-NON AF EQUATORIAL GUINEAN>60Normal>=60The [facility] HospitalComment on above:Performed By: #### LIPID, CMP #### [facility] [address] [address] [address] Giovanni StewartGlobulin (S) [Mass/Vol]3.5 g/dLNormalThe [facility] HospitalComment on above:Performed By: #### LIPID, CMP #### [facility] [address] [address] [address] Giovanni StewartGlucose [Mass/Vol]107 mg/dLCritically rvmk26-768Jts [facility] HospitalComment on above:Performed By: #### LIPID, CMP #### [facility] [address] [address] [address] Giovanni StewartPotassium [Moles/Vol]4.3 mmol/LNormal3.5-5.1The [facility] Comment on above:Performed By: #### LIPID, CMP #### [facility] [address] [address] [address] Giovanni StewartProtein [Mass/Vol]7.1 g/dLNormal6.4-8.2[facility] Comment on above:Performed By: #### LIPID, CMP #### [facility] [address] [address] [address] Giovanni StewartSodium [Moles/Vol]140 mmol/ORvbfsv409-703KzgWexner Medical Center Comment on above:Performed By: #### LIPID, CMP #### [facility] [address] [address] [address] Giovanni StewartUrea nitrogen [Mass/Vol]14.0 mg/dLNormal7.0-18.0W[facility]ner Medical CenterComment on above:Performed By: #### LIPID, CMP #### [facility] [address] [address] [address] Giovanni Alex nitrogen/Creatinine [Mass ratio]17.7 mg/mgNormalThe [facility] HospitalComment on above:Performed By: #### LIPID, CMP #### [facility] [address] [place] [address] Dr. Giovanni Stewart Vital Signs Date TimeVital SignValuePerforming WuijpwdbqEfrubesr09-54-3437 11:190400Body mass index (BMI) [Ratio]27 kg/s2OmuvxoofnThe [facility]vue [facility] 11:190400Diastolic blood jjmhlsid46 mm[Hg][facility] 02-05-2024 11:0400Heart rate85 /minThe [facility] 02-05-2024 11:0400Systolic blood hppvgzza053 mm[Hg][facility]10-25-2024 11:110400Body qiivzh189.05 cmThe [facility]10-25[facility]20[facility] 11:0400Body gsxybm49.6 kg[facility] 02-02-2023 13:00-0400Body ybpezq950.13 cmJoann Lewis Other [employer] Other 10-23-2023 13:00-0400Body mass index (BMI) [Ratio] 25.62 kg/f8Rnvqfs Joshua Other [employer] Other 10-23-2023 13:00-0400Body .51 kgNupursoumya Joshua Other [employer] Other 10-23-2023 13:00-0400Diastolic blood yafnhoxh09 mm[Hg] Joann Joshua Other [employer] Other 10-23-2023 13:00-0400Systolic blood kkqxnzua080 mm[Hg] Joannyo Lewis Other [employer] Other Encounters Encounter DateEncounter TypeCare ProviderFacilityStart: 02-05-2024 End: 46-95-8871sjrjbzzuesHnzxxmwjsThe [facility] Work Phone: Start: 02-05-2024 End: 36-91-5877Otqukne encounter procedureFirst[facility] Work Phone: Start: 68-41-7712Ntu-patient / Non-visitFirst[facility] Work Phone: Start: 84-57-0733Tnf-patient / Non-visitFirclaytons Physician Group-[facility] Work Phone: Start: 02-02-2023 End: 97-81-4293oadhxetdzlDseqvn Braun Other [employer] Other Start: 93-13-0975Kcuzrtt encounter procedureJoann EverettNovant Health Charlotte Orthopa[facility] Hospitaltart: 01-26-2023 End: 46-42-0214kylfcyzcfoOkbldd Braun Other [employer] Other Start: 69-86-2125Hkeamznyi encounterAdiliarai Ezio [facility]: 11-27-2022 End: 68-49-7537cjbbdthehuKmbliq Bailey Other [facility] [employer] Other Start: 13-30-4720Twvzplqgt encounterFabby ZengGabby Urgent Care ClydeStart: 11-23-2022 End: 31-49-1574ocipyauejyUulwio E BraunFacility:[facility] Hospitaltart: 11-23-2022 End: 24-07-3036xxxyiyyxweFNJO Lauren Bailey Work Phone: [facility] Work Phone: Start: 11-23-2022 End: 31-02-1219Xplvsrmu ReferredDANYA Zeng Work Phone: [facility] [place] Work Phone: Start: 02-03-2022 End: 99-24-4194vrwokojylzRW MARCIA E BRAUNFacility:G0Dynpl: 12-44-3312Hlxeduaky for general adult medical examination without abnormal findingsDR JOANN LEWIS [facility]art: 51-52-2196Udmho health examinationFabby Zeng Other [facility] [employer] Other Start: 01-14-2022 End: 93-34-3597fipuekumctVJ MARCIA E BRAUNFacility:C7Itbpm: 01-14-2022 End: 47-27-6831Jsckixswf for general adult medical examination without abnormal findingsDR JOANN LEWISFacility:H1 Procedures DateProcedureProcedure DetailPerforming ClinicianStart: 67-14-8320Qlfegoyor for malignant neoplasm of colonFabby Zeng Other Start: 93-97-3586Nuramwisg mammographyLavanessa Zeng Other Start: 02-17-9251Twefidb examination of patientFabby Zeng Other Depression screeningFabby Zeng Other Plan of Treatment DateCare ActivityDetailAuthorStart: 82-91-9365Kkmovrjg identified in Urine by CultureThe [facility] HospitalComprehensive metabolic 2000 panel - Serum or PlasmaThe [facility] Immunizations Immunization DateImmunizationNotesCare JpmbyygrJyecrgwp00-82-8748NPJHR-08 Pfizer (Pediatric)Fabby Zeng Other [facility]10-01-2022influenza virus vaccine, split virus (incl. purified surface antigen)Fabby Zeng Other [employer] Other [id number] virus vaccine, unspecified formulationThe [facility]07-19-2022COVID-19 Vaccine Pfizer - Documentation Purposes Bobbi Zeng Other [facility]10-21-2021COVID-19 Vaccine Pfizer - Documentation Purposes Bobbi Zeng Other [facility]09-30-2021influenza virus vaccine, split virus (incl. purified surface antigen)Fabby Zeng Other [employer] Other [id number] virus vaccine, unspecified formulationThe [facility]09-04-2020influenza virus vaccine, split virus (incl. purified surface antigen)Fabby Zeng Other [employer] Other [id number] virus vaccine, unspecified formulationThe [facility]01-17-2020zoster vaccine, liveFabby Zeng Other [facility]08-22-2017influenza virus vaccine, split virus (incl. purified surface antigen)Fabby Zeng Other [place] [employer] Other [id number] virus vaccine, unspecified formulationThe [facility]08-22-2017pneumococcal polysaccharide vaccine, 23 valSamm Munizley Other [facility]09-16-2016 pneumococcal conjugate vaccine, 13 vallaurenEunicevanessa Zeng Other [facility] Payers DatePayer CategoryPayerPolicy [id number] [id number] 1960 [id number] Social History DateTypeDetailFacilityTobacco smoking status NHISUnknown if ever smokedOhiohealth Mansfield Hospital Work Phone: Start: 28-72-4371Qix [facility]igned At [facility]ex Assigned At BirthSex Assigned At [facility] [employer] Other Start: 81-96-9935Coabags smoking status NHISNever smoked tobacco (finding)[facility] Evaluation note 02-02-2023 Note Date & JxzxSvzyOxiicpxz90-88-9148 Evaluation note* Encounter Date Diagnosis Assessment Notes Treatment Notes Treatment Clinical Notes Jan, Medicare annual wellness visit, subsequent [...] reviewed and amended by provider signed below. Jan,ERD without esophagitis (ICD-10 - K21.9)Omeprazole refilled. Chronic problem. Jan,yslipidemia (ICD-10 - E78.5)Med refilled. chronic problem. reviewed labs. Jan,Screening mammogram for breast cancer (ICD-10 - Z12.31) [employer] Other Evaluation note 01-26-2023 Note Date & MbiiNnhwRtwrbxir46-64-0215 Evaluation note* Encounter Date Diagnosis Assessment Notes Treatment Notes Treatment Clinical Notes Jan, Dyslipidemia (ICD-10 - E78.5) [employer] Other Evaluation note Note Date & TypeNoteFacilityEvaluation noteNo assessment information available [facility] Work Phone: Evaluation note Note Date & TypeNoteFacilityEvaluation noteNo InformationNort [employer] Other History general Narrative - Reported Note Date & TypeNoteFacilityHistory general Narrative - Reported* Type Description Date Medical History GERD (gastroesophageal reflux di sease) Medical HistoryHypercholesteremiaSurgical Historysalpingo-oophorectomy, left [employer] Other History general Narrative - Reported Note Date & TypeNoteFacilityHistory general Narrative - Reported* Type Description Date Medical History GERD (gastroesophageal reflux di sease) Medical HistoryHypercholesteremiaSurgical Historysalpingo-oophorectomy, left Hospitalization HistorySEE SURGICAL HX [employer] Other Summary Purpose Family History Relationship Condition Age at Onset Recorded Date/T vishal brother Malignant neoplasm Unknown HypertensionUnknownfatherDeceasedUnknownHistory of strokeUnknownmotherDeceased Unknown Advance Directives Advance Directive Response Recorded Date/ Time Advance Directives No December 7:34pm Advance Directive Response Recorded Date/ Time Advance Directives No January 29, 2024 11:35am Chief Complaint and Reason for Visit Chief Complaint Dysuria Chief Complaint CC Adult Risk Strati fication wellness Additional Source Comments INFORMATION SOURCE (unrecogn ized section and content) DATE CREATED AUTHOR 02/09/2022 [facility] DATE CREATED AUTHOR AUTHOR'S LOLY DAWSON 11/29/2022 [facility] Care Teams (unrecognized sec tion and content) Team Status: Inactive Member Role Status Dates Fabby Zeng APRN Attending Provider Active Team Status: Active Member Role Status Dates Joann Lewis MD Primary Care Provider Active Team Status: Active Member Role Status Dates Joann Lewis MD Primary Care Provide r, Attending Provider Active Start: February 04, 2024 Team Status: Inactive Member Role Status Dates Joann Lewis MD Primary Care Provide r, Attending Provider [...] BE BASED ON THE PRIMARY CLINICAL RECORDS. [employer] provides no warranty or guarantee of the accuracy or completeness of information in this document.
== END 2025-02-08 12:59 | disposition home or self-care (01) ==
LOC: MAMMO 12:58
PROVIDERS: PCP Family Medicine; Visit Provider Family Medicine
DX: Z12.31 Encounter for screening mammogram for malignant neoplasm of breast (principal); Z00.00 Encounter for general adult medical examination without abnormal findings; E78.00 Pure hypercholesterolemia, unspecified
CPT/HCPCS: 77063; 77067